=== PATIENT | female | born 1965 | race Caucasian/White ===

== ENCOUNTER 2018-02-05 08:03 | Emergency (ER) | payer OTHER, SELFPAY ==
[2018-02-05 08:03] VITALS: BP 160/98; PULSE 87; RESP 15; TEMP 35.9; O2SAT 94; BMI 38.7
--- NOTE | 2018-02-05 08:19 | ED.VISSUMM ---
- ER Visit Summary Date of Service: 02/05/18 Chief Complaint: Burning in my chest History of Present Illness: The patient is a 52 F well-established history of reflux. Denies ever having upper endoscopy. CBC was obtained patient states this is a daily occurrence. Last night failure burning was so bad she said it was even difficult swallowing. Worse with eating and laying supine. Better upright. She denies fever. She denies exertional chest pain or dyspnea. She has no known cardiac history. 5 or 6 years ago she had a negative stress test according to the patient. Physical Examination: Appearing middle-aged female. Vital signs are stable afebrile. She does not look septic or toxic. H EENT exam unremarkable. Neck nontender. Lungs clear to auscultation bilaterally. Heart regular rhythm no murmur. Abdomen is soft and nontender. Normal bowel sounds no peritoneal signs and nontender. Neurologically she is awake and alert. Test Results: EKG shows normal sinus rhythm without any signs of dysrhythmia nor ischemia. Heart rate is 72. Emergency Department Course and Treatment: Patient's history and exam are consistent with gastroesophageal reflux. She will be treated with p.o. tonics and a GI cocktail and reassess. P exam after GI cocktail and Protonix patient is already started to feel better. She and I discussed her test results. Treatment Plan: Stop her Tagamet. She will be written for prescription of Protonix. Elevate the head of her bed. Do not eat for at least 3-4 hours before bedtime. Mylicon as needed for gas. Follow-up with her primary care physician if not improving she may need upper endoscopy. Disposition: Discharge Impression: Acute gastroesophageal reflux This note was generated with [employer] dictation software. It may contain incorrect words, spelling, and punctuation that were not noted in review of the chart prior to signing ED Disposition - Plan for ED Patient: Chief Complaint: Other, Pain/Inj Referrals: Dariel Guardado MD [Primary Care Provider] -
[2018-02-05] MEDS: Mag Hydrox/Al Hydrox/Simeth 30 ML UDC PO (08:26)
[2018-02-05] MEDS: Pantoprazole Sodium 40 MG Tablet PO (08:26)
--- NOTE | 2018-02-05 08:55 | ED.DEP ---
ED Disposition - Plan for ED Patient: Disposition: Home or Assisted Living Chief Complaint: Other, Pain/Inj Instructions: ED GERD Prescriptions: Pantoprazole Sodium [Protonix] 40 mg PO DAILY #30 tab Simethicone 40MG/0.6ML [Mylicon] 40 mg PO DAILY PRN PRN #30 bottle PRN Reason: Gas Referrals: Dariel Guardado MD [Primary Care Provider] - 10-14 Days if not better Additional Instructions: Stop your Tagamet. Start the Protonix for your reflux. Elevate the head your bed. Do not eat for at least 3-4 hours before bedtime. Mylicon as needed for gas. Low up with your doctor if not improving. You may need upper endoscopy if still having significant problems.
== END 2018-02-05 09:11 | disposition home or self-care (01) ==
PROVIDERS: Emergency Provider Emergency Medicine; Family Provider Family Medicine; PCP Family Medicine
DX: K21.9 Gastro-esophageal reflux disease without esophagitis (principal)
CPT/HCPCS: 93005; 99283

== ENCOUNTER 2019-08-10 02:40 | Emergency (ER) | payer SELFPAY ==
[2019-08-10 02:40] VITALS: BP 131/82; PULSE 76; RESP 18; TEMP 36.2; O2SAT 95; BMI 35.3
--- NOTE | 2019-08-10 03:04 | RAD_ITS ---
STUDY: X-RAY - UNILATERAL RIBS ( LEFT ) WITH CHEST REASON FOR EXAM: Female, 53 years old. fell last week -- c/o lt lateral rib pain TECHNIQUE - RIBS: 3 view(s) of the ribs. TECHNIQUE - CHEST: Single frontal view of the chest. COMPARISON: October 04, 2016. FINDINGS - RIBS: Normal visualized left ribs without a demonstrated fracture. FINDINGS - CHEST: Low lung volumes. No pneumothorax. No pleural effusion. Bibasilar atelectasis/scarring. No focal consolidation. Normal size heart. Aortic calcifications. There are diffuse degenerative changes of the visualized thoracic spine. Gaseous distention of the colon within the visualized abdomen. RAD/Ribs Uni Min 3V w/PA Chest IMPRESSION: RIBS: Normal x-ray examination of the left ribs. CHEST: Low lung volumes with bilateral basilar atelectasis/scarring. There is no focal consolidation identified. Gaseous distention of the visualized colon. Dedicated KUB could be performed to further evaluate. Electronically Signed: Tu Bro, at 4:00 EST Tel , Service support ,
[2019-08-10] MEDS: Lidocaine 5% Patch 1 PATCH TOPICAL (03:24)
--- NOTE | 2019-08-10 03:53 | ED.VIS.GEN ---
History of Present Illness Chief Complaint: Chest Other Narrative: Patient presenting for evaluation secondary to rib pain. Patient reports that about a week ago she suffered a mechanical fall. She reports that she tripped on some uneven sidewalk. She struck her knee and her left chest against the ground. She denies hitting her head or loss of consciousness. Patient states that she has had continuous pain in the left chest since then, but over the last 24 hours specifically she has had an increase in that pain with paroxysms of severe pain with some shortness of breath. Patient denies any hemoptysis. She denies any hematuria. She denies any abdominal pain or distention. She is not any sort of anticoagulants. Patient denies any fevers or productive cough associated with this. No abnormal skin changes. Review of systems otherwise negative. Past Medical History - Allergies and Home Meds Allergies/Adverse Reactions: Allergies No Known Allergies Allergy (Verified 02/05/18 08:08) Primary Care Physician: Dariel Guardado MD [Primary Care Provider] - Past Medical History: None Surgical History: no surgical history Smoking Status: Never smoker Review of Systems All systems negative except as indicated General: Denies: Chills, Fever, Sweats Eyes: Denies: Visual changes - bilaterally, Diplopia ENT: Denies: Rhinorrhea, Sore throat Cardiovascular: Reports: Chest pain Respiratory: Reports: Dyspnea Gastrointestinal: Denies: Abdominal pain, Nausea, Vomiting, Diarrhea, Melena, Hematochezia Genitourinary: Denies: Dysuria, Hematuria, Frequency Musculoskeletal: Denies: Back pain, Extremity Pain Skin: Denies: Rash, Wounds Neurological: Denies: Headache, Weakness, Numbness Physical Exam Vital Signs/Narrative: Vital Signs Temp Pulse Resp BP Pulse Ox 08/10/19 02:40 97.2 F L 76 18 131/82 H 95 Inital Vital Signs reviewed: Yes General: Well nourished, Well developed, No Acute Distress Head: Normocephalic, Atraumatic Eyes: Perrl, EOMI ENT: Moist mucous membranes, No rhinorrhea Neck: Supple, Nontender Cardiovascular: Regular rate, Regular rhythm, No murmurs Respiratory: No distress, CTA bilaterally, Chest tenderness - Focal chest tenderness noted at about the T8-T10 region of the left side of the chest in the midaxillary line. No evidence of overlying skin changes, subcutaneous emphysema, flail chest. Abdomen: Soft, Nontender, Nondistended, Normal bowel sounds, - - No abdominal or flank ecchymosis is noted Back: Nontender, Normal Inspection Extremities: Nontender, No edema Skin: Normal color, No rash Neurological: Alert, Oriented x3, Cranial nerves II-XII grossly intact, Normal Strength, Normal Sensation Psychological: Normal affect, Normal Mood Diagnostic/Tx/Re-eval - Medical Decision Making Patient presented secondary to a rib injury with increasing rib pain. Physical exam showed focal tenderness to palpation. I do not believe that laboratory work-up or CT imaging are indicated. Radiographs by my personal review as well as radiology of the chest and left ribs show no evidence of fracture, but do show some dilation of the patient's bowel. I discussed this with patient, she states that she has had a significant amount of gas recently and has not been having issues with constipation and has no history of abdominal surgery so I do not feel that this is a presentation of bowel obstruction. Given the reproducibility of the patient's pain this likely is associated with a rib injury. Patient was treated with a lidocaine patch. She will be discharged with a course of the same. All questions were answered and patient was discharged. ED Disposition - Plan for ED Patient: Disposition: Home or Assisted Living Diagnosis: Rib contusion Instructions: Chest Wall Contusion Prescriptions: Lidocaine [Lidoderm] 1 ea TP DAILY #10 adh..patch Prescription Printed Referrals: Dariel Guardado MD [Primary Care Provider] - 1 Week if not improving
== END 2019-08-10 04:28 | disposition home or self-care (01) ==
PROVIDERS: Emergency Provider Emergency Medicine; PCP Family Medicine
DX: S20.219A Contusion of unspecified front wall of thorax, initial encounter (principal); W01.10XA Fall on same level from slipping, tripping and stumbling with subsequent striking against unspecified object, initial encounter; Y93.9 Activity, unspecified; Y92.480 Sidewalk as the place of occurrence of the external cause; Y99.9 Unspecified external cause status
CPT/HCPCS: 71101; 99283

== ENCOUNTER 2019-08-24 17:16 | Emergency (ER) | payer SELFPAY ==
[2019-08-24 17:17] VITALS: BP 135/92; PULSE 75; RESP 18; TEMP 36.7; O2SAT 99; BMI 36.1
--- NOTE | 2019-08-24 18:17 | EKG12_ITS ---
Test Reason : LIGHT-HEADED Blood Pressure : / mmHG Vent. Rate : 061 BPM Atrial Rate : 061 BPM P-R Int : 160 ms QRS Dur : 080 ms QT Int : 426 ms P-R-T Axes : 035 -09 026 degrees QTc Int : 428 ms Normal sinus rhythm Normal ECG Confirmed by YOLA GONZALES, ILEANA ([id number]), design editor CECILLE TAPIA ([id number]) on 08/26/2019 1:01:15 PM Referred By: RIVER Confirmed By:JUSTO ACEVES MD
[2019-08-24 18:44] LABS: Absolute Lymphocyte Count 2.31 X10^3/uL (0.83-4.51); Absolute Neutrophil Count 6.2 X10^3/uL (2.0-7.7); Basophil# 0.06 X10^3/uL; Basophil% 0.6 % (0-1); Eosinophil# 0.27 X10^3/uL; Eosinophils% 2.9 % (0-5); Hematocrit 42.2 % (37-47); Hemoglobin 14.1 g/dL (12.0-15.0); Lymphocyte # 2.31 X10^3/ul (4.0); Lymphocyte % 24.4 % (19-41); Mean Corp Hgb Conc 33.4 g/dL (32-36); Mean Corpuscular Hgb 29.3 pg (27.0-32.0); Mean Corpuscular Volume 87.6 fL (81-99); Mean Platelet Vol. 9.1 fl (6.2-12.0); Monocyte# 0.59 X10^3/uL; Monocyte% 6.2 % (0-10); NRBC Flagged by Analyzer 0 % (0-5); Neutrophil # 6.19 X10^3/uL (2.7-7.7); Neutrophil % 65.5 % (47-70); Platelet Count 370 K/mm3 (150-450); RBC Distribution Width CV 12.7 % (11.6-14.6); RBC Distribution Width SD 40.3 fl (35.1-43.9); Red Blood Count 4.82 M/mm3 (4.2-5.4); White Blood Count 9.5 K/mm3 (4.4-11.0)
[2019-08-24] MEDS: 0.9% Normal Saline 1,000 ML 1000 ML IV (18:45)
[2019-08-24 18:46] VITALS: BP 142/82; BP 144/78; BP 144/93; PULSE 63; PULSE 64; PULSE 65
--- NOTE | 2019-08-24 18:55 | RAD_ITS ---
STUDY: X-RAY CHEST REASON FOR EXAM: Female, 53 years old. Cough. Dizziness. TECHNIQUE: Frontal and lateral views of the chest COMPARISON: 08/10/2019 FINDINGS: The lungs are clear. There are no pleural effusions. There is no pneumothorax. The heart is normal in size. There are degenerative changes noted in the spine. RAD/Chest PA and Lateral IMPRESSION: No acute thoracic pathology. Electronically Signed: Medhat Barton, at 19:09 EDT Tel , Service support ,
[2019-08-24 18:58] LABS: Anion Gap 5 (5-15); BUN 11 mg/dL (7-18); BUN/Creat Ratio 14.4 RATIO (10-20); Calcium,Total 8.9 mg/dL (8.5-10.1); Chloride 109 mmol/L (98-107); Creatinine, Serum 0.76 mg/dL (0.55-1.02); EST Glomerular Filtration Rate 85 mL/min (>60); Est Glom Filt Rate - Afr Amer 102 mL/min (>60); Estimated Creatinine Clearance 75.62 ml/min; Glucose 104 mg/dL (74-106); Potassium 3.9 mmol/L (3.5-5.1); Sodium Level 142 mmol/L (136-145)
--- NOTE | 2019-08-24 19:19 | ED.VISSUMM ---
- ER Visit Summary Date of Service: 08/24/19 Chief Complaint: Lightheaded History of Present Illness: The patient is a [address] Zamora. She reports that approximately an hour and a half ago [place] she became lightheaded. She had been walking for approximately 25 minutes. She denies any chest pain, palpitations, shortness of breath, abdominal pain, nausea, vomiting, or diarrhea. Patient does report she had a cough for the past few months. Is nonproductive. She denies any vertigo. Review of systems: General: No fever, chills, cold sweats. Cardiovascular: No chest pain, palpitations. Respiratory: No cough, shortness of breath, dyspnea on exertion. Gastrointestinal: No abdominal pain, nausea, vomiting, diarrhea, melena, or hematochezia. Genitourinary: No dysuria, frequency, hematuria. Skin: No rash. Neuro: No headache, numbness, weakness. Physical Examination: Vitals: Stable. Afebrile. General: Well-nourished and well-developed. Head: Normocephalic atraumatic. Neck: Supple, no lymphadenopathy. No JVD. Nontender. Cardiovascular: Regular rate and rhythm. No murmurs. Respiratory: No respiratory distress. Clear to auscultation bilaterally. Abdominal: Soft, nontender, nondistended, normal bowel sounds. No guarding, rebound, or peritoneal signs. Back: Nontender. Extremities: Nontender, no edema. Skin: Normal color, no rash. Neurologic: Alert and oriented ?3. Cranial nerves II through XII are intact. Normal strength and sensation. Psych: Normal affect. Test Results: EKG is sinus at 61 with no acute changes. CBC is normal. Chem-7 shows a chloride 109. Clinical Impression(s) from Imaging Studies Chest X-Ray 08/24/19 18:55 IMPRESSION: No acute thoracic pathology. Electronically Signed: Medhat Barton, at 19:09 EDT Tel , Service support , Emergency Department Course and Treatment: Patient had negative orthostatic vital signs. She was given a liter of normal saline. She is walking about the emergency department with no difficulty. Treatment Plan: Patient be discharged instructions to push fluids. Follow-up with her primary care physician in 1 to 2 days if not improving. Return to the emergency department for any worsening symptoms. Disposition: To home in improved and stable condition. Impression: 1. Lightheadedness, uncertain cause. This note was generated with [employer] software. It may contain incorrect words, spelling, and punctuation that were not noted in review of the chart prior to signing ED Disposition - Plan for ED Patient: Disposition: Home or Assisted Living Instructions: NEAR SYNCOPE, Unknown Referrals: Dariel Guardado MD [Primary Care Provider] - 3-5 Days
[2019-08-24 19:27] VITALS: BP 144/78; PULSE 62; RESP 15; O2SAT 97
== END 2019-08-24 19:35 | disposition home or self-care (01) ==
LOC: ED 18:42
PROVIDERS: Emergency Provider Emergency Medicine; PCP Family Medicine
DX: R42 Dizziness and giddiness (principal); R05 Cough
CPT/HCPCS: 71046; 80048; 85025; 93005; 96360; 99285; J7030; A4216

== ENCOUNTER 2022-11-20 12:40 | Observation (INO) | payer MEDICAID, SELFPAY ==
[2022-11-20] VITALS (8 sets, daily range): BP systolic 128–145; BP diastolic 77–114; PULSE 75–94; RESP 18–20; TEMP 36.4–37.5; O2SAT 94–99; BMI 38.6
--- NOTE | 2022-11-20 13:15 | EX.ED.DYSGE1 ---
HPI <BELLA Ho - Last Filed: 11/20/22 15:08> History of Present Illness Chief Complaint: Cellulitis Narrative Narrative: Is a 57-year-old female with no significant medical history does not take any medications daily does not see a physician. Patient presents to the emergency department for 2 months of worsening pain to the right lower extremity, concerning for infection. 2 months ago she noticed some itching to her right lower leg, over the last couple weeks, is getting more red, more swollen she is also noticed more seepage from the leg. Patient states that the pain is unbearable at this time, she is unable to bear weight, she is unable to sleep. She denies any fevers or chills however does have body aches. She denies any nausea or vomiting. She has not been on any antibiotics recently. PFSH <BELLA Ho - Last Filed: 11/20/22 15:08> [facility] Medical History no medical history Home Medications NK 08/24/19 [History Last Taken Unknown] Allergy/AdvReac Type Severity Reaction Status Date / Time No Known Allergies Allergy Verified 08/24/19 17:19 Surgical History no surgical history Social History Smoking Status: Never smoker ROS <BELLA Ho - Last Filed: 11/20/22 15:08> ROS ED ROS Narrative Constitutional: Negative for fever, chills, weight loss, weakness Eyes: Negative for vision loss, vision change, double vision ENT: Negative for any sore throat, ear pain, congestion Cardiovascular: Negative for any chest pain, tightness, palpitations Respiratory: Negative for any cough, sputum production, hemoptysis, dyspnea, dyspnea on exertion, orthopnea Gastrointestinal: Negative for any abdominal pain, nausea, vomiting, diarrhea, constipation, blood in stool, blood in vomit : Negative for any urinary frequency, dysuria, retention, blood in urine Muscle skeletal: Negative for any muscle joint pain, stiffness, myalgias, arthralgias, neck pain, back pain. Positive for right lower leg pain. Neurological: Negative for any headache, syncope, numbness or tingling, dizziness Skin: Negative for any rashes, lumps, lacerations. Positive for itching, skin breakdown, redness to the right lower leg Psychiatric: Negative for any depression, anxiety, stress, suicidal ideation, homicidal ideation Hematologic: Negative for any easy bruising, excessive bruising, easy bleeding Allergies: Negative for any eczema, hives, rash EXAM <BELLA Ho - Last Filed: 11/20/22 15:08> Physical Exam Narrative Exam Narrative: Vital signs reviewed. HEET: Head normocephalic atraumatic, TMs clear bilaterally. Posterior pharynx is clear, moist mucous membranes. Nares clear bilaterally. Neck: Supple with no lymphadenopathy or tenderness. No signs of meningismus, negative jolt sign. Cardiac: Regular rate and rhythm no murmurs gallops or rubs, equal peripheral pulses bilaterally. Respiratory: Lungs clear to auscultation bilaterally. No chest tenderness. Abdomen: Soft, nontender, nondistended. No abdominal bruit or pulsatile masses. No hepatosplenomegaly Extremities: Patient has erythema, edema to the right lower leg below the knee. There is skin breakdown, significant cellulitis to the medial aspect of the right inner leg that is circumferential. There is skin breakdown with drainage, warm to the touch.. Active full range of motion of all extremities. No neurological focal deficit. Neuro: Cranial nerves II through XII intact, no focal neurological deficits. Skin: Clean dry and intact with no rash, purpura, petechiae, vesicles or pustules. Backs/flank: No CVA tenderness, no midline spinal tenderness, no deformity. Psych: Normal mood and affect. No SI, HI or acute psychosis. Const Vital Signs: 11/20/22 12:40 11/20/22 14:37 Temperature 97.5 F L 98.3 F Temperature Source Temporal Oral Pulse Rate 94 81 Respiratory Rate 18 18 Blood Pressure 134/114 H 128/86 H Blood Pressure Mean 120 100 Pulse Ox 98 95 Oxygen Delivery Method Room Air Room Air Positive well nourished and well developed General Appearance ED: well developed <Dr. Stacy Nava DO - Last Filed: 11/20/22 14:59> Physical Exam Const Vital Signs: 11/20/22 12:40 11/20/22 14:37 Temperature 97.5 F L 98.3 F Temperature Source Temporal Oral Pulse Rate 94 81 Respiratory Rate 18 18 Blood Pressure 134/114 H 128/86 H Blood Pressure Mean 120 100 Pulse Ox 98 95 Oxygen Delivery Method Room Air Room Air MDM <BELLA Ho - Last Filed: 11/20/22 15:08> MDM Lab Data Labs: Laboratory Results - last 24 hr 11/20/22 11/20/22 11/20/22 13:25 13:25 13:25 WBC 9.4 RBC 4.52 Hgb 12.6 Hct 39.4 MCV 87.2 MCH 27.9 MCHC 32.0 RDW Std Deviation 40.2 RDW Coeff of Ariel 12.6 Plt Count 477 H MPV 9.1 Immature Gran % (Auto) 0.400 Neut % (Auto) 74.1 H Lymph % (Auto) 14.1 L Pecos % (Auto) 7.4 Eos % (Auto) 3.3 Baso % (Auto) 0.7 Absolute Neuts (auto) 7.0 Absolute Lymphs (auto) 1.33 Nucleated RBC % 0 PT 13.7 INR 1.0 APTT 26.1 Sodium 140 Potassium 3.8 Chloride 108 H Carbon Dioxide 25.0 Anion Gap 7 BUN 11 Creatinine 0.85 Estim Creat Clear Calc 64.58 Est GFR (MDRD) Af Amer 89 Est GFR (MDRD) Non-Af 74 BUN/Creatinine Ratio 12.9 Glucose 157 H Lactic Acid Calcium 9.1 Total Bilirubin 0.60 AST 17 ALT 21 Alkaline Phosphatase 108 Total Protein 7.3 Albumin 2.9 L Globulin 4.4 H Albumin/Globulin Ratio 0.7 L 11/20/22 13:25 WBC RBC Hgb Hct MCV MCH MCHC RDW Std Deviation RDW Coeff of Ariel Plt Count MPV Immature Gran % (Auto) Neut % (Auto) Lymph % (Auto) Pecos % (Auto) Eos % (Auto) Baso % (Auto) Absolute Neuts (auto) Absolute Lymphs (auto) Nucleated RBC % PT INR APTT Sodium Potassium Chloride Carbon Dioxide Anion Gap BUN Creatinine Estim Creat Clear Calc Est GFR (MDRD) Af Amer Est GFR (MDRD) Non-Af BUN/Creatinine Ratio Glucose Lactic Acid 2.3 H* Calcium Total Bilirubin AST ALT Alkaline Phosphatase Total Protein Albumin Globulin Albumin/Globulin Ratio Treatment and Re-Evaluation :: Patient appears to be in mild discomfort secondary to the right leg pain. Patient presents to the emergency department for a wound to the right leg that is getting worse. Upon initial evaluation, this does look like significant cellulitis to the right lower extremity. Differential diagnoses include PAD, DVT however these are low on my differential. I believe the patient suffering from significant cellulitis. Sepsis work-up will be completed with 2 sets of blood cultures, patient be started on Unasyn, vancomycin. The patient's plan will be to admit to the hospital. Patient laboratory values show normal CBC, chemistries show slight elevated blood glucose at 157 with a increased lactic acid at 2.3. Patient was started on IV Unasyn, vancomycin. Secondary to the extension of the cellulitis, skin breakdown, patient will be admitted to the hospital, hospitalist agrees and is stable. <Dr. Stacy Nava, DO - Last Filed: 11/20/22 14:59> [facility] MDM Narrative Medical decision making narrative: I have personally performed a face to face assessment of the patient and have reviewed the GRACIELA Note. I performed a substantive portion of the visit including all aspects of the following. My pena findings include: History is [patient presents with redness swelling and pain to the right lower extremity. Patient states that she developed a rash and some itching to her right lower extremity about 2 months ago and she has been itching it and picking at it. Progressively became more painful and red and swollen. She had no fever or chills or sweats. She is not sure if she has any medical problems that she does not see a primary care physician. Patient denies any chest pain or shortness of breath.] Exam is [HEENT-PERRLA, EOMI. Cranial nerves II through XII grossly intact. TMs clear. Mucous membranes moist. No adenopathy. Cardiovascular-regular rate and rhythm without murmur or ectopy Lungs-clear to auscultation, chest wall stable without crepitus or subcu emphysema Abdomen-normoactive bowel sounds, soft, nontender, no rebound or rigidity, no peritoneal signs. Extremities-intact ?4, normal range of motion, normal pulses. Right lower extremity-patient has diffuse erythema and excoriated skin that appears cellulitic with weeping. Neurovascularly intact distally.] Medical Decison Making [patient will be started on Unasyn and vancomycin IV. Wound culture will be obtained. We will get basic lab work-up.] Patient had a normal WBC count of 9.4. Lactate was slightly 2.3. Patient was treated with Unasyn and vancomycin. Case discussed with hospitalist to evaluate patient for admission for cellulitis right lower extremity. Other additions or changes: [None] Lab Data Labs: Laboratory Results - last 24 hr 11/20/22 11/20/22 11/20/22 13:25 13:25 13:25 WBC 9.4 RBC 4.52 Hgb 12.6 Hct 39.4 MCV 87.2 MCH 27.9 MCHC 32.0 RDW Std Deviation 40.2 RDW Coeff of Ariel 12.6 Plt Count 477 H MPV 9.1 Immature Gran % (Auto) 0.400 Neut % (Auto) 74.1 H Lymph % (Auto) 14.1 L Pecos % (Auto) 7.4 Eos % (Auto) 3.3 Baso % (Auto) 0.7 Absolute Neuts (auto) 7.0 Absolute Lymphs (auto) 1.33 Nucleated RBC % 0 PT 13.7 INR 1.0 APTT 26.1 Sodium 140 Potassium 3.8 Chloride 108 H Carbon Dioxide 25.0 Anion Gap 7 BUN 11 Creatinine 0.85 Estim Creat Clear Calc 64.58 Est GFR (MDRD) Af Amer 89 Est GFR (MDRD) Non-Af 74 BUN/Creatinine Ratio 12.9 Glucose 157 H Lactic Acid Calcium 9.1 Total Bilirubin 0.60 AST 17 ALT 21 Alkaline Phosphatase 108 Total Protein 7.3 Albumin 2.9 L Globulin 4.4 H Albumin/Globulin Ratio 0.7 L 11/20/22 13:25 WBC RBC Hgb Hct MCV MCH MCHC RDW Std Deviation RDW Coeff of Ariel Plt Count MPV Immature Gran % (Auto) Neut % (Auto) Lymph % (Auto) [place]os % (Auto) Eos % (Auto) Baso % (Auto) Absolute Neuts (auto) Absolute Lymphs (auto) Nucleated RBC % PT INR APTT Sodium Potassium Chloride Carbon Dioxide Anion Gap BUN Creatinine Estim Creat Clear Calc Est GFR (MDRD) Af Amer Est GFR (MDRD) Non-Af BUN/Creatinine Ratio Glucose Lactic Acid 2.3 H* Calcium Total Bilirubin AST ALT Alkaline Phosphatase Total Protein Albumin Globulin Albumin/Globulin Ratio Discharge Plan Triage Chief Complaint: Cellulitis ED Midlevel Provider: Eric Mejias ED Provider: Stacy Nava Dx/Rx/DC Orders Clinical Impression: Cellulitis Prescriptions: No Action NK Primary Care Provider: Care Physician,No Primary Referrals: Care Physician,No Primary [Primary Care Provider] - Disposition Disposition: [facility]
[2022-11-20 13:47] LABS: Absolute Lymphocyte Count 1.33 X10^3/uL (0.83-4.51); Basophil# 0.07 X10^3/uL; Basophil% 0.7 % (0-1); Eosinophil# 0.31 X10^3/uL; Eosinophils% 3.3 % (0-5); Hematocrit 39.4 % (37-47); Hemoglobin 12.6 g/dL (12.0-15.0); Lymphocyte # 1.33 X10^3/ul (0.83-4.51); Lymphocyte % 14.1 % (19-41); Mean Corpuscular Hgb 27.9 pg (27.0-32.0); Mean Corpuscular Volume 87.2 fL (81-99); Mean Platelet Vol. 9.1 fl (6.2-12.0); Monocyte% 7.4 % (0-10); NRBC Flagged by Analyzer 0 % (0-5); Neutrophil # 6.96 X10^3/uL (2.7-7.7); Neutrophil % 74.1 % (47-70); Platelet Count 477 K/mm3 (150-450); RBC Distribution Width CV 12.6 % (11.6-14.6); RBC Distribution Width SD 40.2 fl (35.1-43.9); Red Blood Count 4.52 M/mm3 (4.2-5.4); White Blood Count 9.4 K/mm3 (4.4-11.0)
[2022-11-20 13:52] LABS: Partial Thromboplast Time 26.1 Seconds (24.1-36.2); Prothrombin Time (Protime)PT. 13.7 SECONDS (11.7-14.9)
[2022-11-20] MEDS: Morphine 4 MG/ML Syringe IV (13:54)
[2022-11-20] MEDS: 0.9% Normal Saline 1,000 ML 999 ML IV ×3 (13:54→18:34)
[2022-11-20] MEDS: Ondansetron 4 MG/2 ML Vial IV (13:54)
[2022-11-20 14:05] LABS: ALB/GLOB Ratio 0.7 RATIO (0.9-2.4); AST(SGOT) 17 U/L (15-37); Alanine Aminotransfer ALT/SGPT 21 U/L (13-56); Albumin, Serum 2.9 g/dL (3.2-5.0); Alkaline Phosphatase 108 U/L (45-117); Anion Gap 7 (5-15); BUN 11 mg/dL (7-18); BUN/Creat Ratio 12.9 RATIO (10-20); Calcium,Total 9.1 mg/dL (8.5-10.1); Chloride 108 mmol/L (98-107); Creatinine, Serum 0.85 mg/dL (0.55-1.02); EST Glomerular Filtration Rate 74 mL/min (>60); Est Glom Filt Rate - Afr Amer 89 mL/min (>60); Estimated Creatinine Clearance 64.58 ml/min; Globulin 4.4 g/dL (2.2-4.2); Glucose 157 mg/dL (74-106); Potassium 3.8 mmol/L (3.5-5.1); Protein, Total 7.3 g/dL (6.4-8.2); Sodium Level 140 mmol/L (136-145)
[2022-11-20 14:21] LABS: Lactic Acid 2.3 mmol/L (0.4-1.9)
--- NOTE | 2022-11-20 15:07 | ED.RN ---
pharmacy was notified that vancomycin not in department
--- NOTE | 2022-11-20 15:31 | CT_ITS ---
CT RIGHT LOWER EXTREMITY WITH 3-D IMAGING CLINICAL INDICATION: cellulitis -- suspected nec fasitis. R/O abscess TECHNIQUE: Axial CT images of the RIGHT lower extremity was performed Contrast IV 100mL Isovue-300 IV contrast material. Coronal and sagittal reformats were provided. RADIATION DOSAGE (If Supplied By Facility): CTDIvol = ( 15.35 ) mGy, DLP = ( 825.81 ) mGycm COMPARISON: FINDINGS: Bones: There is mild degenerative arthrosis of the medial femorotibial compartment. There is mild degenerative arthrosis of the lateral femorotibial compartment. There is mild degenerative arthrosis of the patellofemoral articulation. There is a plantar calcaneal spur. There is an enthesophyte involving the posterior superior calcaneus at the site of insertion of the Achilles tendon. Degenerative findings of the visualized tarsal bones. Soft Tissues: There is soft tissue swelling around the ankle. Varicose veins throughout the lower extremity. Subcutaneous edema changes. CT/Extremity Lower WITH Contrast IMPRESSION: Soft tissue swelling around the lower extremity may suggest cellulitis. No drainable abscess. Electronically Signed: Reji Coulter MD at 16:11 EDT ,
--- NOTE | 2022-11-20 16:34 | PCM.HP.STD ---
HPI - General General Date of Admission: 11/20/22 Date of Service: 11/20/22 Chief Complaint: Progressive worsening of right lower extremity redness pain for about 2 to 3 weeks HPI Narrative CHAD GONZALEZ, is a 57 F who does not follow any PCP came to ED for right lower extremity cellulitis prominently worsening for about 2 to 3 weeks. It started with itching about a month ago and right lower leg and then couple weeks ago she saw a redness pain, oozing purulent drainage. She also had blisters. Complain of pain and low-grade fever. Patient does not know about her past medical history as she does not follow any doctor. She does not know whether she has diabetes mellitus but glucose was elevated in ED. Vitals in the ED shows low-grade fever, blood pressure in normal range no tachycardia or hypoxia. Labs and imaging discussed in assessment and plan. She denies history of chronic atherosclerotic peripheral artery disease but seems she has varicose vein which she is unaware. Denies coronary artery disease or stroke. Family history is negative for [place] coronary artery disease or PAD. FORMERLY [facility], 1928–1983 Medical History no medical history Home Medications NK 08/24/19 [History Last Taken Unknown] Allergy/AdvReac Type Severity Reaction Status Date / Time No Known Allergies Allergy Verified 08/24/19 17:19 Surgical History no surgical history Social History Smoking Status: Never smoker ROS ROS Narrative Constitutional: Reports fatigue and weakness. Pain from her right lower extremity HEENT: Reports systems reviewed and no addt'l complaints, except as documented Respiratory/Chest: No acute shortness of breath or respiratory distress or wheezing. CVS: As described in HPI. Gastrointestinal: Denies coffee ground emesis, hematemesis or vomiting Genitourinary: Denies burning urination or new urinary tract symptoms Musculoskeletal: Does not give any trauma history to right lower extremity. No fracture or bony injury in the past of right lower extremity Neurologic: Denies seizure-like symptoms. skin: Blisters redness pain ongoing for about 2 to 3 weeks as described in HPI Endocrinology: Reports systems reviewed and no addt'l complaints, except as documented Hematologic/Lymphatic: Reports systems reviewed and no addt'l complaints, except as documented Rest 14 ROS are negative except as mentioned in HPI Vital Signs Vital Signs Vital Signs: 11/20/22 12:40 11/20/22 14:37 11/20/22 16:00 Temperature 97.5 F L 98.3 F 99.5 F H Temperature Source Temporal Oral Temporal Pulse Rate 94 81 76 Respiratory Rate 18 18 18 Blood Pressure 134/114 H 128/86 H 133/78 H Blood Pressure Mean 120 100 96 Pulse Ox 98 95 97 Oxygen Delivery Method Room Air Room Air Room Air 11/20/22 16:21 11/20/22 16:26 Temperature 98.2 F 99.5 F H Temperature Source Temporal Temporal Pulse Rate 88 82 Respiratory Rate 20 H 20 H Blood Pressure 138/77 H 133/91 H Blood Pressure Mean 97 105 Pulse Ox 94 95 Oxygen Delivery Method Room Air Room Air Weight Weight: 225 lb 1.6 oz Body Mass Index (BMI) 38.6 Physical Exam Narrative General: Alert, Oriented x3, Cooperative HEENT: Atraumatic, PERRLA, EOMI, Normocephalic Oral: Oral mucosa dry. No Gingival or Mucosal Lesions/ Ulcerations Neck: Supple, No JVD, Negative Carotid Bruits Lungs: Air entry diminished in bilateral lung bases. No crepitation/rhonchi Cardiovascular: Regular rate, Regular Rhythm, Normal S1, Normal S2, No murmurs Abdomen: Bowel Sounds Present, Soft, Non Tender, Non-Distended : No renal angle tenderness. No suprapubic tenderness. Extremities: No edema, Capillary Refill Less than 3 Seconds Skin: Erythema, induration, exhibits tenderness out of proportion to pain over right lower extremity. Cellulitis below right knee joint. Musculoskeletal: ROM restricted at knee and ankle. 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 No pain or acute abnormality in other extremities. Neurological: Cranial nerves II-XII grossly intact, DTR 2+/4 and Symmetrical, Neuro grossly intact Psych/Mental Status: Flat affect. Results Lab / Micro Data Result Diagrams: 11/20/22 13:25 11/20/22 13:25 Labs: Laboratory Results - last 24 hr 11/20/22 13:25: WBC 9.4, RBC 4.52, Hgb 12.6, Hct 39.4, MCV 87.2, MCH 27.9, MCHC 32.0, RDW Std Deviation 40.2, RDW Coeff of Ariel 12.6, Plt Count 477 H, MPV 9.1, Immature Gran % (Auto) 0.400, Neut % (Auto) 74.1 H, Lymph % (Auto) 14.1 L, [place] % (Auto) 7.4, Eos % (Auto) 3.3, Baso % (Auto) 0.7, Absolute Neuts (auto) 7.0, Absolute Lymphs (auto) 1.33, Nucleated RBC % 0 11/20/22 13:25: PT 13.7, INR 1.0, APTT 26.1 11/20/22 13:25: Sodium 140, Potassium 3.8, Chloride 108 H, Carbon Dioxide 25.0, Anion Gap 7, BUN 11, Creatinine 0.85, Estim Creat Clear Calc 64.58, Est GFR (MDRD) Af Amer 89, Est GFR (MDRD) Non-Af 74, BUN/Creatinine Ratio 12.9, Glucose 157 H, Calcium 9.1, Total Bilirubin 0.60, AST 17, ALT 21, Alkaline Phosphatase 108, Total Protein 7.3, Albumin 2.9 L, Globulin 4.4 H, Albumin/Globulin Ratio 0.7 L 11/20/22 13:25: Lactic Acid 2.3 H* Radiology Impression Lower Extremity CT 11/20/22 15:31 IMPRESSION: Soft tissue swelling around the lower extremity may suggest cellulitis. No drainable abscess. Electronically Signed: Reji Coulter MD at 16:11 EDT Reading Location ID and State: [facility] / [place] , Service support , Assessment & Plan Assessment/Plan (1) Sepsis: PLAN: Plan This 57-year-old female is being admitted for sepsis due to cellulitis. 1. Sepsis due to right lower extremity cellulitis with varicose vein: Patient has purulent drainage with blisters ongoing for about [address] right lower extremity with contrast was done which shows subcutaneous edema but no drainable abscess. Patient is started on IV vancomycin and Zosyn. ID consulted. The patient presented with sepsis with clinical indicators of low-grade fever due to more severe right lower extremity cellulitis probably involving deep fascia, deep tissue infection with acute sepsis-related organ dysfunction as evidenced by lactic acidosis. Sepsis labs were done. KHANG and venous duplex ordered. 2. Probably undiagnosed diabetes mellitus type 2: Glucose is high 157. A1c tomorrow AM. Accu-Chek insulin is covered with Humalog sliding scale. Renal ADA diet. 3. Morbid obesity: BMI 38.6 kg/m?. Weight loss counseling done. VTE prophylaxis, high risk: Lovenox 40 mg subcu daily. Living will/advanced directive/end of life care: Patient does not have living will or advanced directive. After discussion of benefits/risks procedures involved with full code, DNR CC arrest and DNR CC, the patient opted for full code. Patient does want artificial life support including intubation, tube feed, ventilator and/chest compression, central venous catheter, vasopressor and DC shock if needed Total time spent in [id number] encounter in discussion of advanced directive 17 minutes. Laboratory Results 11/20/22 13:25: WBC 9.4, RBC 4.52, Hgb 12.6, Hct 39.4, MCV 87.2, MCH 27.9, MCHC 32.0, RDW Std Deviation 40.2, RDW Coeff of Ariel 12.6, Plt Count 477 H, MPV 9.1, Immature Gran % (Auto) 0.400, Neut % (Auto) 74.1 H, Lymph % (Auto) 14.1 L, [place] % (Auto) 7.4, Eos % (Auto) 3.3, Baso % (Auto) 0.7, Absolute Neuts (auto) 7.0, Absolute Lymphs (auto) 1.33, Nucleated RBC % 0 11/20/22 13:25: PT 13.7, INR 1.0, APTT 26.1 11/20/22 13:25: Sodium 140, Potassium 3.8, Chloride 108 H, Carbon Dioxide 25.0, Anion Gap 7, BUN 11, Creatinine 0.85, Estim Creat Clear Calc 64.58, Est GFR (MDRD) Af Amer 89, Est GFR (MDRD) Non-Af 74, BUN/Creatinine Ratio 12.9, Glucose 157 H, Calcium 9.1, Total Bilirubin 0.60, AST 17, ALT 21, Alkaline Phosphatase 108, Total Protein 7.3, Albumin 2.9 L, Globulin 4.4 H, Albumin/Globulin Ratio 0.7 L 11/20/22 13:25: Lactic Acid 2.3 H* Clinical Impression(s) from Imaging Studies Lower Extremity CT 11/20/22 15:31 IMPRESSION: Soft tissue swelling around the lower extremity may suggest cellulitis. No drainable abscess. Charges/Coding Visit Charges Inpatient E&M: 01694 Init Hosp L3 Procedures Hospitalists Procedures: 80631 Advncd Care Plan 30 Min
--- NOTE | 2022-11-20 17:13 | VDLE_ITS ---
Reason For Study: Bi lateral Leg Swelling RIGHT LEFT GSV is normal. GSV is normal. CFV is compressible, spontaneous, phasic, CFV is compressible, spontaneous, phasic, competent and demonstrates normal competent, and demonstrates normal augmentation. augmentation. FV is compressible, spontaneous, phasic, FV is compressible, spontaneous, phasic, competent and demonstrates normal competent and demonstrates normal augmentation. augmentation. POP V is compressible, spontaneous, phasic, POP V is compressible, spontaneous, phasic, competent and demonstrates normal competent and demonstrates normal augmentation. augmentation. T/P Trunk is compressible. T/P Trunk is compressible. PTV is compressible. PTV is compressible. RT PerV is compressible. LT PerV is compressible. Unable to visualize mid and distal rt calf vessels due to open wounds. Procedure This is a venous duplex using B-mode, color flow and spectral Doppler. Exam performed portable in patient room. The exam was diagnostic. A preliminary report was called and/or faxed to M/S 3 RN responsible for patient. VL/Venous Duplex US - German Extrem Interpretation Summary No evidence for acute deep venous thrombosis bilateral lower extremities with p atent and compressible bilateral great saphenous veins. Technical limitation unable to vi sualize right mid and distal calf vessels due to open wounds. Ordering Physician: Sandeep Alanis Performed By: Geoffrey Brewster RVT
--- NOTE | 2022-11-20 17:13 | ART_ITS ---
Reason For Study: Right DPA and TEEN COUNSELOR diminished Procedure A bilateral lower extremity continuous wave Doppler with analog waveform analysis and ankle brachial indexes. Left Segmental Pressures Left brachial= 151mmHg. Left posterior tibial artery = 198mmHg. Left dorsalis pedis artery = 180mmHg. Left digit = 108 mmHg. The left dorsalis pedis waveforms are triphasic. The left posterior tibial artery waveforms are triphasic. Right Segmental Pressures Right posterior tibial artery = 184mmHg. Right dorsalis pedis artery = 185mmHg. Right digit = 95 mmHg. The right dorsalis pedis waveforms are triphasic. The right posterior tibial artery waveforms are triphasic. Indices The right ankle brachial index by the dorsalis pedis is 1.23. The right ankle brachial index by the posterior tibial artery is 1.22. The right digital-brachial index is 0.63. The left ankle brachial index by the dorsalis pedis is 1.19. The left ankle brachial index by the posterior tibial artery is 1.31. The left digital-brachial index is 0.72. VL/Ankle Brachial Index Interpretation Summary Normal right dorsalis pedis and posterior tibialis ankle-brachial indices at re st 1.23 and 1.22 respectively with normal triphasic Doppler waveforms. The right digital brachial index is abnormal at 0.63 suggesting distal small ve ssel disease Normal left lower extremity dorsalis pedis and posterior tibialis ankle-brachia l indices at rest at 1.19 and 1.31 respectively with normal triphasic Doppler waveforms. The left lower extremity digital brachial index is borderline abnormal at 0.72 suggesting distal small vessel disease Ordering Physician: Sandeep Alanis Performed By: Geoffrey Brewster RVT
[2022-11-20 17:32] LABS: CPK Total, Creatine Kinase 59 U/L (26-192); Magnesium 2.2 mg/dL (1.6-2.6); Phosphorus 2.8 mg/dL (2.5-4.9)
[2022-11-20] MEDS: Enoxaparin 40 MG/0.4 ML Syringe SC (17:35)
[2022-11-20 17:37] LABS: Reflex Lactate? Y
--- NOTE | 2022-11-20 17:54 | PCM.RX.CS ---
Consult Pharmacy has been consulted to manage selected antiobiotic: Vancomycin Type of Consult: New start Suspected Infection: Skin/Soft tissue Prior Doses of Antibiotics Received/Current Regimen: 11/20/22 @ 1521 Labs: Sodium 140 mmol/L (136-145) 11/20/22 13:25 Potassium 3.8 mmol/L (3.5-5.1) 11/20/22 13:25 Chloride 108 mmol/L (98-107) H 11/20/22 13:25 Carbon Dioxide 25.0 mmol/L (21.0-32.0) 11/20/22 13:25 Anion Gap 7 (5-15) 11/20/22 13:25 BUN 11 mg/dL (7-18) 11/20/22 13:25 Creatinine 0.85 mg/dL (0.55-1.02) 11/20/22 13:25 Est GFR (MDRD) Af Amer 89 mL/min (>60) 11/20/22 13:25 Est GFR (MDRD) Non-Af 74 mL/min (>60) 11/20/22 13:25 BUN/Creatinine Ratio 12.9 RATIO (10-20) 11/20/22 13:25 Glucose 157 mg/dL (74-106) H 11/20/22 13:25 Weight used for dosin kg Estimated Creatinine Clearance: 64 Pharmacy Plan for Drug Dosing: StrtVancomycin 1250mg every 12 hours. First dose to be given at 0330 on 11/21/22 Pharmacy Service will continue to monitor and adjust dosing as required. Follow-Up Labs: Trough Vancomycin Labs to be done on [date and time ordered]: 11/22/22 @ 0300
[2022-11-20 19:21] LABS: Lactic Acid 2.1 mmol/L (0.4-1.9)
[2022-11-20] MEDS: Senna/Docusate Sodium 1 Tablet 2 TABLET PO (21:51)
[2022-11-21] VITALS (10 sets, daily range): BP systolic 143–156; BP diastolic 85–96; PULSE 72–79; RESP 16–20; TEMP 36.5–36.9; O2SAT 95–98; BMI 38.2
[2022-11-21 06:40] LABS: Absolute Lymphocyte Count 1.73 X10^3/uL (0.83-4.51); Absolute Neutrophil Count 4.5 X10^3/uL (2.0-7.7); Basophil# 0.07 X10^3/uL; Basophil% 0.9 % (0-1); Eosinophil# 0.46 X10^3/uL; Eosinophils% 6.2 % (0-5); Hematocrit 37.2 % (37-47); Hemoglobin 11.6 g/dL (12.0-15.0); Lymphocyte # 1.73 X10^3/ul (0.83-4.51); Lymphocyte % 23.4 % (19-41); Mean Corp Hgb Conc 31.2 g/dL (32-36); Mean Corpuscular Hgb 28.3 pg (27.0-32.0); Mean Corpuscular Volume 90.7 fL (81-99); Mean Platelet Vol. 8.9 fl (6.2-12.0); Monocyte# 0.61 X10^3/uL; Monocyte% 8.2 % (0-10); NRBC Flagged by Analyzer 0 % (0-5); Neutrophil % 60.9 % (47-70); Platelet Count 397 K/mm3 (150-450); RBC Distribution Width CV 12.7 % (11.6-14.6); RBC Distribution Width SD 42.1 fl (35.1-43.9); White Blood Count 7.4 K/mm3 (4.4-11.0)
[2022-11-21 07:10] LABS: Anion Gap 2 (5-15); BUN 7 mg/dL (7-18); BUN/Creat Ratio 10.1 RATIO (10-20); Calcium,Total 8.3 mg/dL (8.5-10.1); Chloride 113 mmol/L (98-107); Creatinine, Serum 0.69 mg/dL (0.55-1.02); EST Glomerular Filtration Rate 94 mL/min (>60); Est Glom Filt Rate - Afr Amer 113 mL/min (>60); Estimated Creatinine Clearance 79.55 ml/min; Glucose 116 mg/dL (74-106); Potassium 4.2 mmol/L (3.5-5.1); Sodium Level 141 mmol/L (136-145)
--- NOTE | 2022-11-21 07:46 | PCM.RX.CS ---
Consult Type of Consult: Follow-up Suspected Infection: Skin/Soft tissue Labs: Sodium 141 mmol/L (136-145) 11/21/22 06:27 Potassium 4.2 mmol/L (3.5-5.1) 11/21/22 06:27 Chloride 113 mmol/L (98-107) H 11/21/22 06:27 Carbon Dioxide 26.0 mmol/L (21.0-32.0) 11/21/22 06:27 Anion Gap 2 (5-15) L 11/21/22 06:27 BUN 7 mg/dL (7-18) 11/21/22 06:27 Creatinine 0.69 mg/dL (0.55-1.02) 11/21/22 06:27 Est GFR (MDRD) Af Amer 113 mL/min (>60) 11/21/22 06:27 Est GFR (MDRD) Non-Af 94 mL/min (>60) 11/21/22 06:27 BUN/Creatinine Ratio 10.1 RATIO (10-20) 11/21/22 06:27 Glucose 116 mg/dL (74-106) H 11/21/22 06:27 Goal Trough: 15-20 mcg/mL Pharmacy Plan for Drug Dosing: DAILY ASSESSMENT Current Vancomycin Dose: 1250mg Q12H Number of Doses Received: 1250mg x1, 2000mg x1 Current Renal Function: sCr 0.69 (CrCl 106.7 ml/min using AdjBW 73.4 kg) Renal Function Trend: stable-improved Lab/Micro: pending Any Change in Vanc Plan: Yes - adjust Vancomycin dosing regimen to 1000mg Q8H Pending Level: Vancomycin trough @ 0 11/22/22 Pharmacy Service will continue to monitor and adjust dosing as required. Labs to be done on [date and time ordered]: Vancomycin trough @ [address]/22/22
--- NOTE | 2022-11-21 08:41 | PN.HOSP_ITS ---
Reason for Visit Reason for Visit: Diagnoses Sepsis, unspecified organism (11/20/22) Subjective Subjective Patient wakes easily, reports uneventful night. Tolerable discomfort, 2/10, from right lower extremity while resting, pain increases to 6-8/10 when up to restroom; states I can walk on it, it just really hurts. Absorbent pad under right leg, noted moderate amount purulent drainage on pad and on linen surrounding wound; skin marker used to outline erythema border of wound. Patient stated that wound started with just an itchy blister. Patient denies having pets or knowing if she had been bitten by an insect. She reports living at [address] [place] [address]; evicted from previous residence because she refused to pay rent for a moldy apartment that was falling apart. Patient denies mental and physical disabilities. Objective Data Objective Data Vital Signs: Vital Signs Temp Pulse Resp BP Pulse Ox O2 Del Method 97.7 F L 73 18 153/85 H 96 Room Air 11/21/22 03:38 11/21/22 03:38 11/21/22 03:38 11/21/22 03:38 11/21/22 07:26 11/21/22 07:26 Oxygen Delivery Method Room Air Weight: 101.5 kg Body Mass Index (BMI) 38.2 Intake & Output: Intake and Output for Last 24 Hours 11/19/22 11/20/22 11/21/22 23:59 23:59 23:59 Intake Total 3634.35 / 3984.35 875 / 875 Output Total 1300 / 1300 Balance 3634.35 / 3409.35 -425 / -425 Lab / Micro Data Result Diagrams: 11/21/22 06:27 11/21/22 06:27 Labs: Laboratory Results - last 24 hr 11/20/22 13:25: WBC 9.4, RBC 4.52, Hgb 12.6, Hct 39.4, MCV 87.2, MCH 27.9, MCHC 32.0, RDW Std Deviation 40.2, RDW Coeff of Ariel 12.6, Plt Count 477 H, MPV 9.1, Immature Gran % (Auto) 0.400, Neut % (Auto) 74.1 H, Lymph % (Auto) 14.1 L, [place] % (Auto) 7.4, Eos % (Auto) 3.3, Baso % (Auto) 0.7, Absolute Neuts (auto) 7.0, Absolute Lymphs (auto) 1.33, Nucleated RBC % 0 11/20/22 13:25: PT 13.7, INR 1.0, APTT 26.1 11/20/22 13:25: Sodium 140, Potassium 3.8, Chloride 108 H, Carbon Dioxide 25.0, Anion Gap 7, BUN 11, Creatinine 0.85, Estim Creat Clear Calc 64.58, Est GFR (MDRD) Af Amer 89, Est GFR (MDRD) Non-Af 74, BUN/Creatinine Ratio 12.9, Glucose 157 H, Calcium 9.1, Total Bilirubin 0.60, AST 17, ALT 21, Alkaline Phosphatase 108, Total Protein 7.3, Albumin 2.9 L, Globulin 4.4 H, Albumin/Globulin Ratio 0.7 L 11/20/22 13:25: Lactic Acid 2.3 H* 11/20/22 13:25: Phosphorus 2.8, Magnesium 2.2, Total Creatine Kinase 59 11/20/22 18:35: Lactic Acid 2.1 H* 11/21/22 06:27: Sodium 141, Potassium 4.2, Chloride 113 H, Carbon Dioxide 26.0, Anion Gap 2 L, BUN 7, Creatinine 0.69, Estim Creat Clear Calc 79.55, Est GFR (MDRD) Af Amer 113, Est GFR (MDRD) Non-Af 94, BUN/Creatinine Ratio 10.1, Glucose 116 H, Calcium 8.3 L 11/21/22 06:27: WBC 7.4, RBC 4.10 L, Hgb 11.6 L, Hct 37.2, MCV 90.7, MCH 28.3, MCHC 31.2 L, RDW Std Deviation 42.1, RDW Coeff of Ariel 12.7, Plt Count 397, MPV 8.9, Immature Gran % (Auto) 0.400, Neut % (Auto) 60.9, Lymph % (Auto) 23.4, [place] % (Auto) 8.2, Eos % (Auto) 6.2 H, Baso % (Auto) 0.9, Absolute Neuts (auto) 4.5, Absolute Lymphs (auto) 1.73, Nucleated RBC % 0 Radiography Diagnostic Testing: Radiology Impression Lower Extremity CT 11/20/22 15:31 IMPRESSION: Soft tissue swelling around the lower extremity may suggest cellulitis. No drainable abscess. Electronically Signed: Reji Coulter MD at 16:11 EDT ,
[2022-11-21] MEDS: Senna/Docusate Sodium 1 Tablet 2 TABLET PO ×2 (09:24→21:29)
[2022-11-21] MEDS: Enoxaparin 40 MG/0.4 ML Syringe SC (09:26)
[2022-11-21 10:11] LABS: Hemoglobin A1c 5.7 % (3.8-5.6)
[2022-11-21] MEDS: Acetaminophen 325 MG Tablet 650 MG PO ×2 (11:36→21:27)
[2022-11-21] MEDS: Vancomycin IV 1,000 MG/200 ML BAG 200 MG IV ×2 (11:39→21:13)
[2022-11-21 12:12] LABS: Bedside Glucose 125 mg/dL (74-106)
--- NOTE | 2022-11-21 12:17 | PN.HOSP_ITS ---
Reason for Visit Reason for Visit: Diagnoses Sepsis, unspecified organism (11/20/22) Subjective Subjective Patient reclined in bed, wakes easily. Pleasant and cooperative, on room air, without signs of distress. Denies problems over night, states that right leg pain is tolerable at rest but increases quite a bit with walking. Reports some anxiety about treatment of leg wound as her brother has had problems similar to this in the past due to his diabetes. Objective Data Objective Data Vital Signs: Vital Signs Temp Pulse Resp BP Pulse Ox O2 Del Method 97.9 F 72 16 149/93 H 97 Room Air 11/21/22 11:53 11/21/22 11:53 11/21/22 11:53 11/21/22 11:53 11/21/22 11:53 11/21/22 11:53 Oxygen Delivery Method Room Air Weight: 101.5 kg Body Mass Index (BMI) 38.2 Intake & Output: Intake and Output for Last 24 Hours 11/19/22 11/20/22 11/21/22 23:59 23:59 23:59 Intake Total 3634.35 / 3984.35 1725 / 1725 Output Total 2650 / 2650 Balance 3634.35 / 3409.35 -925 / -925 Lab / Micro Data Result Diagrams: 11/21/22 06:27 11/21/22 06:27 Labs: Laboratory Results - last 24 hr 11/20/22 13:25: WBC 9.4, RBC 4.52, Hgb 12.6, Hct 39.4, MCV 87.2, MCH 27.9, MCHC 32.0, RDW Std Deviation 40.2, RDW Coeff of Ariel 12.6, Plt Count 477 H, MPV 9.1, Immature Gran % (Auto) 0.400, Neut % (Auto) 74.1 H, Lymph % (Auto) 14.1 L, [place] % (Auto) 7.4, Eos % (Auto) 3.3, Baso % (Auto) 0.7, Absolute Neuts (auto) 7.0, Absolute Lymphs (auto) 1.33, Nucleated RBC % 0 11/20/22 13:25: PT 13.7, INR 1.0, APTT 26.1 11/20/22 13:25: Sodium 140, Potassium 3.8, Chloride 108 H, Carbon Dioxide 25.0, Anion Gap 7, BUN 11, Creatinine 0.85, Estim Creat Clear Calc 64.58, Est GFR (MDRD) Af Amer 89, Est GFR (MDRD) Non-Af 74, BUN/Creatinine Ratio 12.9, Glucose 157 H, Calcium 9.1, Total Bilirubin 0.60, AST 17, ALT 21, Alkaline Phosphatase 108, Total Protein 7.3, Albumin 2.9 L, Globulin 4.4 H, Albumin/Globulin Ratio 0.7 L 11/20/22 13:25: Lactic Acid 2.3 H* 11/20/22 13:25: Phosphorus 2.8, Magnesium 2.2, Total Creatine Kinase 59 11/20/22 18:35: Lactic Acid 2.1 H* 11/21/22 06:27: Sodium 141, Potassium 4.2, Chloride 113 H, Carbon Dioxide 26.0, Anion Gap 2 L, BUN 7, Creatinine 0.69, Estim Creat Clear Calc 79.55, Est GFR (MDRD) Af Amer 113, Est GFR (MDRD) Non-Af 94, BUN/Creatinine Ratio 10.1, Glucose 116 H, Calcium 8.3 L 11/21/22 06:27: WBC 7.4, RBC 4.10 L, Hgb 11.6 L, Hct 37.2, MCV 90.7, MCH 28.3, MCHC 31.2 L, RDW Std Deviation 42.1, RDW Coeff of Ariel 12.7, Plt Count 397, MPV 8.9, Immature Gran % (Auto) 0.400, Neut % (Auto) 60.9, Lymph % (Auto) 23.4, [place] % (Auto) 8.2, Eos % (Auto) 6.2 H, Baso % (Auto) 0.9, Absolute Neuts (auto) 4.5, Absolute Lymphs (auto) 1.73, Nucleated RBC % 0 11/21/22 06:27: Hemoglobin A1c 5.7 H 11/21/22 11:28: POC Glucose 125 H Micro: Microbiology 11/20/22 13:30 Wound - Leg, Right Wound Culture - Preliminary Staphylococcus species Gram positive organism Radiography Diagnostic Testing: Radiology Impression Lower Extremity CT 11/20/22 15:31 IMPRESSION: Soft tissue swelling around the lower extremity may suggest cellulitis. No drainable abscess. Electronically Signed: Reji Coulter MD at 16:11 EDT , Physical Exam Const Constitutional Narrative: Alert, oriented x3, no apparent distress, morbidly obese. HEENT head/scalp atraumatic and moist oral mucous membranes Head and Scalp: normocephalic Eyes PERRL and EOMs intact bilaterally Neck supple and no JVD Chest inspection of chest normal Resp normal respiratory effort, no retractions, no use of accessory muscles and clear to auscultation bilaterally Cardio regular rate, regular rhythm, S1 normal heart sound, S2 normal heart sound, no murmurs, no rub and no gallops GI normal to inspection, nondistended, normoactive bowel sounds, soft to palpation and non-tender; Negative for hepatosplenomegaly no CVA tenderness Back/Spine normal ROM Extremity Extremity Narrative: Right lower leg edematous and erythemic compared to left, edema is nonpitting, erythema outlined with skin marker to measure borders. Center of erythema is macerated,open wound draining purulent and serous fluid without malodor. Open area painful to touch, pain 8-9/10 to right lower extremity w/ambulation. Patient maintains full ROM. Neuro CN's II-XII intact bilaterally, moves all extremities, no focal motor deficits and no sensory deficits noted Motor Exam: strength 5/5 throughout Psych Mood & Affect: anxious Assessment & Plan Assessment/Plan (1) Cellulitis: (2) Lactic acidosis: PLAN: Plan 1. Cellulitis - erythemic and edematous areas marked to monitor expansion/recession - Infectious disease consulted, continue Vancomycin, added Unasyn, D/C Zosyn - wound care consulted for recommendations - wound cultured, pending results - bilateral venous ultrasound negative for DVTs, with limiting visualization of right mid and distal calf vessels d/t open wound 2. Lactic acidosis - lactic acid present on admission, SBPs trending 130-150mmHg, no tachycardia, no febrile events, pt remains on room air; sepsis criteria not met DVT: Lovenox
--- NOTE | 2022-11-21 12:23 | CON.PCM.ID_ITS ---
Assessment & Plan Assessment/Plan (1) Lactic acidosis: (2) Cellulitis: PLAN: RLE cellulitis with infected wound - recommend study to eval arterial blood flow. Wound cx with heavy GPC/staph seen. CT did not show gas/abscess/fasciitis. Wound care consulted. Will cover with vanc/unasyn for now. Will follow, thank you HPI Consult Data Date of Consult: 11/21/22 HPI Narrative Reason for Consultation: RLE infected wound HPI Narrative: CHAD GONZALEZ, is a 57 F who presented 11/20 to ED with 2-3 weeks progressive R medial lower leg itching, redness, wound formation, and drainage. No fever or chills, no recent abx. No other wounds. Pain was moderate, worse with walking. Came to ED, given vanc/unasyn, admitted on vanc/zosyn. Pain improved with pain meds. Full ROS performed and neg except as noted above. PFSH Medical History no medical history Home Medications NK 08/24/19 [History Last Taken Unknown] Allergy/AdvReac Type Severity Reaction Status Date / Time No Known Allergies Allergy Verified 08/24/19 17:19 Surgical History no surgical history Social History Smoking Status: Never smoker Physical Exam Const alert, oriented x3 and no apparent distress General Appearance: cooperative HEENT normocephalic and head/scalp atraumatic Eyes PERRL and EOMs intact bilaterally Neck supple and No nodes Resp normal air movement and clear to auscultation bilaterally Cardio regular rate and regular rhythm GI soft to palpation, non-tender and non-distended Extremity General Extremity: edema Skin Skin Narrative: R medial ware with diffuse ulceration, redness, mild/moderate tenderness Neuro CN's II-XII intact bilaterally Lab / Micro Data Attestation: I reviewed the patient's lab results. Result Diagrams: 11/21/22 06:27 11/21/22 06:27 Labs: Laboratory Results - last 24 hr 11/20/22 13:25: WBC 9.4, RBC 4.52, Hgb 12.6, Hct 39.4, MCV 87.2, MCH 27.9, MCHC 32.0, RDW Std Deviation 40.2, RDW Coeff of Ariel 12.6, Plt Count 477 H, MPV 9.1, Immature Gran % (Auto) 0.400, Neut % (Auto) 74.1 H, Lymph % (Auto) 14.1 L, [place] % (Auto) 7.4, Eos % (Auto) 3.3, Baso % (Auto) 0.7, Absolute Neuts (auto) 7.0, Absolute Lymphs (auto) 1.33, Nucleated RBC % 0 11/20/22 13:25: PT 13.7, INR 1.0, APTT 26.1 11/20/22 13:25: Sodium 140, Potassium 3.8, Chloride 108 H, Carbon Dioxide 25.0, Anion Gap 7, BUN 11, Creatinine 0.85, Estim Creat Clear Calc 64.58, Est GFR (MDRD) Af Amer 89, Est GFR (MDRD) Non-Af 74, BUN/Creatinine Ratio 12.9, Glucose 157 H, Calcium 9.1, Total Bilirubin 0.60, AST 17, ALT 21, Alkaline Phosphatase 108, Total Protein 7.3, Albumin 2.9 L, Globulin 4.4 H, Albumin/Globulin Ratio 0.7 L 11/20/22 13:25: Lactic Acid 2.3 H* 11/20/22 13:25: Phosphorus 2.8, Magnesium 2.2, Total Creatine Kinase 59 11/20/22 18:35: Lactic Acid 2.1 H* 11/21/22 06:27: Sodium 141, Potassium 4.2, Chloride 113 H, Carbon Dioxide 26.0, Anion Gap 2 L, BUN 7, Creatinine 0.69, Estim Creat Clear Calc 79.55, Est GFR (MDRD) Af Amer 113, Est GFR (MDRD) Non-Af 94, BUN/Creatinine Ratio 10.1, Glucose 116 H, Calcium 8.3 L 11/21/22 06:27: WBC 7.4, RBC 4.10 L, Hgb 11.6 L, Hct 37.2, MCV 90.7, MCH 28.3, MCHC 31.2 L, RDW Std Deviation 42.1, RDW Coeff of Ariel 12.7, Plt Count 397, MPV 8.9, Immature Gran % (Auto) 0.400, Neut % (Auto) 60.9, Lymph % (Auto) 23.4, [place] % (Auto) 8.2, Eos % (Auto) 6.2 H, Baso % (Auto) 0.9, Absolute Neuts (auto) 4.5, Absolute Lymphs (auto) 1.73, Nucleated RBC % 0 11/21/22 06:27: Hemoglobin A1c 5.7 H 11/21/22 11:28: POC Glucose 125 H Micro: Microbiology 11/20/22 13:30 Wound - Leg, Right Wound Culture - Preliminary Staphylococcus species Gram positive organism Radiology Impression Lower Extremity CT 11/20/22 15:31 IMPRESSION: Soft tissue swelling around the lower extremity may suggest cellulitis. No drainable abscess. Electronically Signed: Reji Coulter MD at 16:11 EDT , Venous Doppler Study 11/20/22 17:13 Interpretation Summary No evidence for acute deep venous thrombosis bilateral lower extremities with patent and compressible bilateral great saphenous veins. Technical limitation unable to visualize right mid and distal calf vessels due to open wounds. Ordering Physician: Sandeep Alanis Performed By: Geoffrey Brewster, RVT
--- NOTE | 2022-11-21 12:50 | CASEMGMT ---
RN?CM?CORPORATE CONTROLLER?CM?to room to meet with patient for initial transition planning/care coordination?assessment.?RN?CM?introduced self and role at [facility].? Pt voices understanding and consents to?assessment?at this time.? Pt sitting up in bed in no distress at this time.? Pt is A/O at this time and answers all questions appropriately.?? Care providers, pharmacy, and demographics verified/updated at this time. PCP: No PCP . Specialists: None Preferred Pharmacy: [facility]. Insurance: Self-pay Prescription Benefit:?none. Pt may benefit from [facility] Rx assist program at d/c Living Will/HPOA:?Pt does not currently have LW/HCPOA and declines wanting to complete at this time. LNOK: Brother, Cornelio. Nephew, Michael. Friend, Margo Living Arrangements: Lives @ [facility]. Pt states there are 20 steps to get to her room but there is a chair lift available, if needed. Pt states she is Independent. Transportation:?Pt states is able to drive, but does not have a vehicle. She states she either walks or a friend or family will provide transportation, if available. DME: ? Denies using any DME and denies needs.? HHC/SNF: No hx of either. Pt wishes to return to [facility] and states has no concerns with going home at time of discharge.?DIONE, Jazmin, working w/pt and states will provide resources. ?CM?to follow for any further discharge planning/needs.? Pt voices no further concerns/needs at this time.? Advised pt to ask for?CM?if any further questions/concerns/needs arise.? Voices understanding. PLAN:??Return to [facility] w/discharge plans in place. [facility] Rx assist program to cover cost of medications Anny KEITHN?RN?CM
--- NOTE | 2022-11-21 13:20 | CASEMGMT ---
Social Work Resources given to pt for self pay status, see SDMS assessment for details. SW also gave pt information on LW/POA. ERIN Giordano
--- NOTE | 2022-11-21 14:46 | CHAPLAIN ---
Type of Pastoral Visit _x__ Initial Visit ___ Follow-up Visit ___ On-call Visit ___ General Patient Visit ___ Spiritual Assessment ___ Family Conference ___ Bereavement ___ Rapid Response ___ Code Blue ___ Other (describe below) Pastoral Care Referral From _x__ Patient ___ Family ___ Nurse ___ Physician ___ Chief Operator Hydroformer ___ Solder Cream Maker ___ Other (describe below) Sacrament/Intervention _x__ Active listening ___ Anointing ___ Mormon ___ Bereavement ___ Communion ___ Michelle exploration ___ ___ Life review _x__ Prayer ___ Reconciliation ___ Sacrament of Sick _x__ Supportive presence ___ Wedding ___ Other (describe below) Pastoral Comments patient reviews her health need and then admits to not having a home, staying at [facility] temporarily; pt has a brother that should be checking on her today but otherwise has limited family support; pt welcomes prayer and presence
[2022-11-21 16:30] LABS: Probe Check PASS; Staph aureus DNA By PCR POSITIVE (Negative)
[2022-11-21 16:32] LABS: M R Staph aureus DNA By PCR POSITIVE (Negative)
--- NOTE | 2022-11-21 18:27 | PCM.PN.HOSP ---
Subjective Subjective Doing well, no issues overnight. Pain is improved and redness is no longer spreading Objective Data Objective Data Vital Signs: Vital Signs Temp Pulse Resp BP Pulse Ox O2 Del Method 97.7 F L 74 16 143/96 H 95 Room Air 11/21/22 15:30 11/21/22 16:46 11/21/22 15:30 11/21/22 15:30 11/21/22 15:30 11/21/22 15:30 Oxygen Delivery Method Room Air Weight: 223 lb 12.307 oz Body Mass Index (BMI) 38.2 Intake & Output: Intake and Output for Last 24 Hours 11/20/22 11/21/22 11/22/22 03:59 03:59 03:59 Intake Total 4034.35 / 4034.35 2437 / 2437 Output Total 575 / 575 2925 / 2925 Balance 3459.35 / 3459.35 -488 / -488 Lab / Micro Data Result Diagrams: 11/21/22 06:27 11/21/22 06:27 Labs: Laboratory Results - last 24 hr 11/20/22 18:35: Lactic Acid 2.1 H* 11/21/22 06:27: Sodium 141, Potassium 4.2, Chloride 113 H, Carbon Dioxide 26.0, Anion Gap 2 L, BUN 7, Creatinine 0.69, Estim Creat Clear Calc 79.55, Est GFR (MDRD) Af Amer 113, Est GFR (MDRD) Non-Af 94, BUN/Creatinine Ratio 10.1, Glucose 116 H, Calcium 8.3 L 11/21/22 06:27: WBC 7.4, RBC 4.10 L, Hgb 11.6 L, Hct 37.2, MCV 90.7, MCH 28.3, MCHC 31.2 L, RDW Std Deviation 42.1, RDW Coeff of Ariel 12.7, Plt Count 397, MPV 8.9, Immature Gran % (Auto) 0.400, Neut % (Auto) 60.9, Lymph % (Auto) 23.4, [place] % (Auto) 8.2, Eos % (Auto) 6.2 H, Baso % (Auto) 0.9, Absolute Neuts (auto) 4.5, Absolute Lymphs (auto) 1.73, Nucleated RBC % 0 11/21/22 06:27: Hemoglobin A1c 5.7 H 11/21/22 11:28: POC Glucose 125 H 11/21/22 11:40: S.aureus Protein A PCR POSITIVE H, MRSA (PCR) POSITIVE H Micro: Microbiology 11/20/22 13:30 Wound - Leg, Right Gram Stain - Final 11/20/22 13:30 Wound - Leg, Right Wound Culture - Preliminary Staphylococcus species Gram positive organism Radiography Diagnostic Testing: Radiology Impression Venous Doppler Study 11/20/22 17:13 Interpretation Summary No evidence for acute deep venous thrombosis bilateral lower extremities with patent and compressible bilateral great saphenous veins. Technical limitation unable to visualize right mid and distal calf vessels due to open wounds. Ordering Physician: Sandeep Alanis Performed By: Geoffrey Brewster RVT Physical Exam Narrative General: Alert, Oriented x3, Cooperative, No apparent distress HEENT: Atraumatic, PERRLA, EOMI, Normocephalic Oral: Moist Mucosa Neck: Supple, No JVD Lungs: Clear to auscultation, Normal air movement, No rhonchi, No wheeze, No rales Cardiovascular: Regular rate, Regular Rhythm, Normal S1, Normal S2, No murmurs Abdomen: Soft, Non Tender, Non-Distended, No Hepato-splenomegaly Extremities: No edema, Capillary Refill Less than 3 Seconds Skin: Area of erythema with skin breakdown and scar tissue, infection has been present for about a month Musculoskeletal: No Tenderness to Palpation of Joints or Extremities Neurological: Cranial nerves II-XII grossly intact, Motor Exam 5/5 strength throughout, Sensory exam intact to light touch and pain Psych/Mental Status: Normal Affect, Appropriate Assessment & Plan Assessment/Plan (1) Sepsis: PLAN: Plan 1. Right lower extremity cellulitis with varicose veins ? No signs of sepsis on admission ? CT scan did not demonstrate an abscess ? No DVT ? ABIs do demonstrate decreased circulation in her feet ? MRSA screen is positive ? Wound cultures growing staphylococcal species ? Continue with Vanco and Unasyn ? Appreciate and for his disease input 2. A1c is normal at 5.7 3. Morbid obesity: BMI 38.6 kg/m?. Weight loss counseling done. DVT: Lovenox Charges/Coding Visit Charges Inpatient E&M: 45526 Subs Hosp L2
[2022-11-21] MEDS: 0.9% Saline Lock 10 ML Syringe IV (21:22)
[2022-11-22] VITALS (7 sets, daily range): BP systolic 151–171; BP diastolic 85–101; PULSE 79–97; RESP 16–20; TEMP 36.5–36.8; O2SAT 96–99; BMI 38.7
[2022-11-22] MEDS: proCHLORPERazine 10 MG/2 ML Vial 5 MG IV ×2 (02:15→12:51)
[2022-11-22] MEDS: 0.9% Saline Lock 10 ML Syringe IV ×3 (02:17→20:56)
[2022-11-22 04:00] LABS: Absolute Lymphocyte Count 1.53 X10^3/uL (0.83-4.51); Absolute Neutrophil Count 5.2 X10^3/uL (2.0-7.7); Basophil# 0.06 X10^3/uL; Basophil% 0.8 % (0-1); Eosinophil# 0.45 X10^3/uL; Eosinophils% 5.7 % (0-5); Hematocrit 37.2 % (37-47); Hemoglobin 11.9 g/dL (12.0-15.0); Lymphocyte # 1.53 X10^3/ul (0.83-4.51); Lymphocyte % 19.5 % (19-41); Mean Corpuscular Hgb 28.3 pg (27.0-32.0); Mean Corpuscular Volume 88.4 fL (81-99); Monocyte# 0.61 X10^3/uL; Monocyte% 7.8 % (0-10); NRBC Flagged by Analyzer 0 % (0-5); Neutrophil # 5.16 X10^3/uL (2.7-7.7); Neutrophil % 65.7 % (47-70); Platelet Count 443 K/mm3 (150-450); RBC Distribution Width CV 12.5 % (11.6-14.6); RBC Distribution Width SD 40.1 fl (35.1-43.9); Red Blood Count 4.21 M/mm3 (4.2-5.4); White Blood Count 7.9 K/mm3 (4.4-11.0)
[2022-11-22 04:32] LABS: Anion Gap 6 (5-15); BUN 9 mg/dL (7-18); BUN/Creat Ratio 16.2 RATIO (10-20); Calcium,Total 8.6 mg/dL (8.5-10.1); Chloride 111 mmol/L (98-107); Creatinine, Serum 0.56 mg/dL (0.55-1.02); EST Glomerular Filtration Rate 121 mL/min (>60); Est Glom Filt Rate - Afr Amer 146 mL/min (>60); Estimated Creatinine Clearance 98.02 ml/min; Glucose 123 mg/dL (74-106); Potassium 3.6 mmol/L (3.5-5.1); Sodium Level 142 mmol/L (136-145)
[2022-11-22 04:33] LABS: Vancomycin, Trough Level 20.3 ug/mL (5.0-15.0)
[2022-11-22] MEDS: Vancomycin IV 1,000 MG/200 ML BAG 200 MG IV ×3 (05:21→20:58)
--- NOTE | 2022-11-22 06:31 | PHA.PHARE_ITS ---
Consult Pharmacy has been consulted to manage selected antiobiotic: Vancomycin Type of Consult: Follow-up Suspected Infection: Skin/Soft tissue Prior Doses of Antibiotics Received/Current Regimen: Medications Vancomycin HCl (Vancomycin) 1,000 mg in 200 mls @ 200 mls/hr IV Q8H JENIFFER Last Admin: 11/22/22 05:21 Dose: 200 mls/hr Labs: Sodium 142 mmol/L (136-145) 11/22/22 03:50 Potassium 3.6 mmol/L (3.5-5.1) 11/22/22 03:50 Chloride 111 mmol/L (98-107) H 11/22/22 03:50 Carbon Dioxide 25.0 mmol/L (21.0-32.0) 11/22/22 03:50 Anion Gap 6 (5-15) 11/22/22 03:50 BUN 9 mg/dL (7-18) 11/22/22 03:50 Creatinine 0.56 mg/dL (0.55-1.02) 11/22/22 03:50 Est GFR (MDRD) Af Amer 146 mL/min (>60) 11/22/22 03:50 Est GFR (MDRD) Non-Af 121 mL/min (>60) 11/22/22 03:50 BUN/Creatinine Ratio 16.2 RATIO (10-20) 11/22/22 03:50 Glucose 123 mg/dL (74-106) H 11/22/22 03:50 Vancomycin Trough 20.3 ug/mL (5.0-15.0) H 11/22/22 03:50 Microbiology: Microbiology 11/20/22 13:30 Wound - Leg, Right Gram Stain - Final 11/20/22 13:30 Wound - Leg, Right Wound Culture - Preliminary Staphylococcus species Gram positive organism Weight used for dosin kg Estimated Creatinine Clearance: 124 Goal Trough: 15-20 mcg/mL Pharmacy Plan for Drug Dosing: Vancomycin trough level of 20.2 was slightly above the target range of 15-20. However, the level was drawn just 6.3 hours post-dose, and renal function continues to improve. Therefore, will continue dosing at 1000mg q8h. Will re- draw a trough in two days. Pharmacy Service will continue to monitor and adjust dosing as required. Follow-Up Labs: Trough Vancomycin Labs to be done on [date and time ordered]: 11/24/22 @0330
[2022-11-22] MEDS: Senna/Docusate Sodium 1 Tablet 2 TABLET PO ×2 (07:30→20:59)
[2022-11-22] MEDS: Enoxaparin 40 MG/0.4 ML Syringe SC (07:30)
--- NOTE | 2022-11-22 09:48 | PCM.PN.HOSP ---
Subjective Subjective Feeling better today, feels that the redness is improving Objective Data Objective Data Vital Signs: Vital Signs Temp Pulse Resp BP Pulse Ox O2 Del Method 97.9 F 97 18 171/95 H 98 Room Air 11/22/22 07:32 11/22/22 08:10 11/22/22 07:32 11/22/22 07:32 11/22/22 08:15 11/22/22 08:15 Oxygen Delivery Method Room Air Weight: 227 lb 1.218 oz Body Mass Index (BMI) 38.7 Intake & Output: Intake and Output for Last 24 Hours 11/21/22 11/22/22 11/23/22 03:59 03:59 03:59 Intake Total 4034.35 / 4034.35 2749 / 2749 312 / 312 Output Total 575 / 575 3225 / 3225 750 / 750 Balance 3459.35 / 3459.35 -476 / -476 -438 / -438 Lab / Micro Data Result Diagrams: 11/22/22 03:50 11/22/22 03:50 Labs: Laboratory Results - last 24 hr 11/21/22 06:27: Hemoglobin A1c 5.7 H 11/21/22 11:28: POC Glucose 125 H 11/21/22 11:40: S.aureus Protein A PCR POSITIVE H, MRSA (PCR) POSITIVE H 11/22/22 03:50: Vancomycin Trough 20.3 H 11/22/22 03:50: WBC 7.9, RBC 4.21, Hgb 11.9 L, Hct 37.2, MCV 88.4, MCH 28.3, MCHC 32.0, RDW Std Deviation 40.1, RDW Coeff of Ariel 12.5, Plt Count 443, MPV 9.0, Immature Gran % (Auto) 0.500, Neut % (Auto) 65.7, Lymph % (Auto) 19.5, [place] % (Auto) 7.8, Eos % (Auto) 5.7 H, Baso % (Auto) 0.8, Absolute Neuts (auto) 5.2, Absolute Lymphs (auto) 1.53, Nucleated RBC % 0 11/22/22 03:50: Sodium 142, Potassium 3.6, Chloride 111 H, Carbon Dioxide 25.0, Anion Gap 6, BUN 9, Creatinine 0.56, Estim Creat Clear Calc 98.02, Est GFR (MDRD) Af Amer 146, Est GFR (MDRD) Non-Af 121, BUN/Creatinine Ratio 16.2, Glucose 123 H, Calcium 8.6 Micro: Microbiology 11/20/22 13:30 Wound - Leg, Right Gram Stain - Final 11/20/22 13:30 Wound - Leg, Right Wound Culture - Preliminary Staphylococcus aureus Radiography Diagnostic Testing: Radiology Impression Ankle Brachial Index 11/20/22 17:13 Interpretation Summary Normal right dorsalis pedis and posterior tibialis ankle-brachial indices at rest 1.23 and 1.22 respectively with normal triphasic Doppler waveforms. The right digital brachial index is abnormal at 0.63 suggesting distal small vessel disease Normal left lower extremity dorsalis pedis and posterior tibialis ankle-brachial indices at rest at 1.19 and 1.31 respectively with normal triphasic Doppler waveforms. The left lower extremity digital brachial index is borderline abnormal at 0.72 suggesting distal small vessel disease Ordering Physician: Sandeep Alanis Performed By: Geoffrey Brewster RVT Venous Doppler Study 11/20/22 17:13 Interpretation Summary No evidence for acute deep venous thrombosis bilateral lower extremities with patent and compressible bilateral great saphenous veins. Technical limitation unable to visualize right mid and distal calf vessels due to open wounds. Ordering Physician: Sandeep Alanis Performed By: Geoffrey Brewster RVT Physical Exam Narrative General: Alert, Oriented x3, Cooperative, No apparent distress HEENT: Atraumatic, PERRLA, EOMI, Normocephalic Oral: Moist Mucosa Neck: Supple, No JVD Lungs: Clear to auscultation, Normal air movement, No rhonchi, No wheeze, No rales Cardiovascular: Regular rate, Regular Rhythm, Normal S1, Normal S2, No murmurs Abdomen: Soft, Non Tender, Non-Distended, No Hepato-splenomegaly Extremities: No edema, Capillary Refill Less than 3 Seconds Skin: Area of erythema with skin breakdown and scar tissue, infection has been present for about a month Musculoskeletal: No Tenderness to Palpation of Joints or Extremities Neurological: Cranial nerves II-XII grossly intact, Motor Exam 5/5 strength throughout, Sensory exam intact to light touch and pain Psych/Mental Status: Normal Affect, Appropriate Assessment & Plan Assessment/Plan (1) Sepsis: PLAN: Plan 1. Right lower extremity cellulitis with varicose veins ? No signs of sepsis on admission ? CT scan did not demonstrate an abscess ? No DVT ? ABIs do demonstrate decreased circulation in her feet ? MRSA screen is positive, and wound culture with Staph aureus ? Continue with Vanco and Unasyn ? Appreciate ID input 2. A1c is normal at 5.7 3. Morbid obesity: BMI 38.6 kg/m?. Weight loss counseling done. DVT: Lovenox Charges/Coding Visit Charges Inpatient E&M: 93297 Subs Hosp L2
--- NOTE | 2022-11-22 11:03 | CASEMGMT ---
Social Work It is anticipated pt will be here through the weekend. SW will assist with hospital prescription assist if needed. ERIN Giordano
[2022-11-22] MEDS: Acetaminophen 325 MG Tablet 650 MG PO (20:59)
[2022-11-23 03:28] VITALS: BP 153/107; PULSE 82; RESP 18; TEMP 36.8; O2SAT 95
[2022-11-23] MEDS: Vancomycin IV 1,000 MG/200 ML BAG 200 MG IV (03:30)
[2022-11-23 05:20] VITALS: BMI 38.7
[2022-11-23 07:15] VITALS: O2SAT 96
--- NOTE | 2022-11-23 09:44 | DCINST_ITS ---
Discharge Instructions Diet Discharge Diet: No restrictions Activity Discharge Activity: Return to Normal Activity Dressing / Incision Call your doctor if you observe: Fever of 101 or Higher, Shortness of breath, Dizziness, Fainting spells, Swelling in the ankles, Chest pain and Increased palpitations (irregular heartbeat) Follow Up Care Test Results: Test results from this visit will be discussed in further detail at your follow- up appointment, if applicable. Discharge Plan Admission Admit Date/Time: 11/20/22 14:51 Attending Provider: Mustapha Suarez Primary Care Provider: Care Physician,No Primary Consulting Providers: Jose Emerson ; Sandeep Alanis Discharge Orders/Prescriptions Prescriptions: New cephalexin 500 mg capsule 500 mg PO TID 10 Days Qty: 30 0RF doxycycline monohydrate 100 mg capsule 100 mg PO BID 10 Days Qty: 20 0RF Referrals / Follow Up: Susannah Lizarraga [Non-Staff] - Within 1 Week Care Physician,No Primary [Primary Care Provider] - Disposition Disposition (needs filled in before D/C Order can be placed): Home, Self Care
[2022-11-23] MEDS: Enoxaparin 40 MG/0.4 ML Syringe SC (09:54)
[2022-11-23] MEDS: Senna/Docusate Sodium 1 Tablet 2 TABLET PO (09:54)
[2022-11-23 10:00] VITALS: BP 153/99; PULSE 91; RESP 16; TEMP 36.6; O2SAT 98
--- NOTE | 2022-11-23 10:23 | PCM.DC.SUM ---
Providers Date of Admission: 11/20/22 Primary Care Physician: Mariely Primary Care Phys Consultations 11/20/22 16:58 Consult: Infectious Disease Routine Consulting Provider: Jose Emerson Reason for Consult: Severe cellulitis, seems deep fascia infection EMERGENT Consult: No MD Notified: Yes Date Notified: 11/20/22 Time Notified: 16:41 Method of Notification: Text 11/20/22 19:23 Consult: Onc/Wound/obstetrics gynecology md Routine Comment: Reason for Consult:: RLE cellulitis with purulent drainage Reason For Visit: RLE CELLULITIS Diagnosis Discharge Diagnosis (1) Sepsis: Status: Acute Code(s): A41.9 - Sepsis, unspecified organism Medications at Discharge Home Medications cephalexin 500 mg capsule 500 mg PO TID 10 days #30 caps 11/23/22 doxycycline monohydrate 100 mg capsule 100 mg PO BID 10 days #20 caps 11/23/22 Hospital Course Operations None Procedures None Summary of Care Provided Minutes Spent on Discharge: 35 Hospital Course: Per HPI: CHAD GONZALEZ, is a 57 F who does not follow any PCP came to ED for right lower extremity cellulitis prominently worsening for about 2 to 3 weeks.? It started with itching about a month ago and right lower leg and then couple weeks ago she saw a redness pain, oozing purulent drainage.? She also had blisters.? Complain of pain and low-grade fever. Patient does not know about her past medical history as she does not follow any doctor.? She does not know whether she has diabetes mellitus but glucose was elevated in ED. Vitals in the ED shows low-grade fever, blood pressure in normal range no tachycardia or hypoxia.? Labs and imaging discussed in assessment and plan. She denies history of chronic atherosclerotic peripheral artery disease but seems she has varicose vein which she is unaware.? Denies coronary artery disease or stroke. Family history is negative for MS coronary artery disease or PAD. Hospital Course: 1. Right lower extremity cellulitis with varicose veins?57-year-old female who lives at [facility] presents to the hospital 1 month after she noticed redness on her right lower extremity. She did not seek medical care during this time. She does have a large area of tissue breakdown with scab formation that seeps in a few areas. She is feeling much better today. Wound culture demonstrated MRSA and I discussed the case with infectious disease who felt that she could be discharged on 10 days of Doxy as well as 10 days of Keflex. She did have Doppler ultrasound of her lower extremity which did not demonstrate a DVT. Arterial studies show distal arterial disease in her bilateral feet. I discussed with her the plan for discharge today she expressed understanding of the risk benefits of going home and would like to go home today. I do recommend she follow-up with the [facility] for monitoring her wound Physical Exam Narrative General: Alert, Oriented x3, Cooperative, No apparent distress HEENT: Atraumatic, PERRLA, EOMI, Normocephalic Oral: Moist Mucosa Neck: Supple, No JVD Lungs: Clear to auscultation, Normal air movement, No rhonchi, No wheeze, No rales Cardiovascular: Regular rate, Regular Rhythm, Normal S1, Normal S2, No murmurs Abdomen: Soft, Non Tender, Non-Distended, No Hepato-splenomegaly Extremities: No edema, Capillary Refill Less than 3 Seconds Skin: Area of erythema with skin breakdown and scar tissue, infection has been present for about a month Musculoskeletal: No Tenderness to Palpation of Joints or Extremities Neurological: Cranial nerves II-XII grossly intact, Motor Exam 5/5 strength throughout, Sensory exam intact to light touch and pain Psych/Mental Status: Normal Affect, Appropriate Weight / BMI Weight Weight: 226 lb 13.69 oz Body Mass Index (BMI) 38.7 ABG / Lab / Microbiology Data Result Diagrams: 11/22/22 03:50 11/22/22 03:50 Microbiology: Microbiology 11/20/22 13:30 Wound - Leg, Right Gram Stain - Final 11/20/22 13:30 Wound - Leg, Right Wound Culture - Final Meth. resistant Staph. aureus 11/20/22 13:30 Blood Culture (Wb) - Anticubital Right Blood Culture - Preliminary No growth in 48 hours. 11/20/22 13:25 Blood Culture (Wb) - Left Forearm Blood Culture - Preliminary No growth in 48 hours. D/C Instructions Discharge Diet: No restrictions Call your doctor if you observe: Fever of 101 or Higher, Shortness of breath, Dizziness, Fainting spells, Swelling in the ankles, Chest pain and Increased palpitations (irregular heartbeat) Meaningful Use Info Meaningful Use Diagnoses (Choose all that apply): None applicable Discharge Plan Admission Admit Date/Time: 11/20/22 14:51 Attending Provider: Mustapha Suarez Primary Care Provider: Care Physician,No Primary Consulting Providers: Jose Emerson ; Sandeep Alanis Discharge Orders/Prescriptions Prescriptions: New cephalexin 500 mg capsule 500 mg PO TID 10 Days Qty: 30 0RF doxycycline monohydrate 100 mg capsule 100 mg PO BID 10 Days Qty: 20 0RF Referrals / Follow Up: Susannah Lizarraga [Non-Staff] - Within 1 Week Care Physician,No Primary [Primary Care Provider] - Disposition Disposition (needs filled in before D/C Order can be placed): Home, Self Care Charges/Coding Visit Charges Inpatient E&M: 22604 Disch Hosp >30min
== END 2022-11-23 12:51 | disposition home or self-care (01) | DRG 383 ==
LOC: ED 15:08 → MS3 11-21 07:18
PROVIDERS: Nurse Practitioner; Admitting Provider Internal Medicine; Emergency Provider Emergency Medicine; Visit Provider Family Medicine
DX: L03.115 Cellulitis of right lower limb (principal); L97.219 Non-pressure chronic ulcer of right calf with unspecified severity; I83.012 Varicose veins of right lower extremity with ulcer of calf; E11.65 Type 2 diabetes mellitus with hyperglycemia; E66.01 Morbid (severe) obesity due to excess calories; E87.20 Acidosis, unspecified; I83.91 Asymptomatic varicose veins of right lower extremity; B95.62 Methicillin resistant Staphylococcus aureus infection as the cause of diseases classified elsewhere; Z51.5 Encounter for palliative care; Z66 Do not resuscitate; Z68.38 Body mass index [BMI] 38.0-38.9, adult
CPT/HCPCS: 97802; 36415; 73701; 80048; 80053; 80202; 82550; 82962; 83036; 83605; 83735; 84100; 85025; 85610; 85730; 87040; 87070; 87077; 87186; 87205; 87640; 93922; 93970; 94668; 96365; 96366; 96367; 96372; 96375; 96376; 97110; 97116; 97162; 97166; 97530; 97535; 99221; 99285; J7030; J7040; J7050; Q9967; A4216; G0378; J0295; J2405

== ENCOUNTER 2022-12-19 11:12 | Emergency (ER) | payer MEDICAID, SELFPAY ==
[2022-12-19 11:13] VITALS: BP 212/174; PULSE 190; RESP 22; TEMP 37.1; O2SAT 97; BMI 38.0
--- NOTE | 2022-12-19 11:51 | EDS_ITS ---
HPI <TRINI Lopez - Last Filed: 12/19/22 13:29> History of Present Illness Chief Complaint: Wound Narrative Narrative: Patient was admitted to [facility] about a month ago for severe cellulitis of the right lower extremity. After discharge she finished 1 week of Keflex and doxycycline (about 3 weeks ago). She has a red scar from the infection but today thought it looked darker prompting her to come in. She has a few small pustules that appeared. Denies fever, chills, drainage, or pain in the extremity. Denies history of diabetes. She had followed up at the [place] [facility] and was referred to the wound center and has an appointment on December 25. PFS <TRINI Lopez Last Filed: 12/19/22 13:29> [facility] Medical History no medical history Home Medications cephalexin 500 mg capsule 500 mg PO TID 10 days #30 caps 11/23/22 [Rx Last Taken Unknown] doxycycline monohydrate 100 mg capsule 100 mg PO BID 10 days #20 caps 11/23/22 [Rx Last Taken Unknown] cephalexin 500 mg capsule 500 mg PO Q6 7 days #28 CAPSULES 12/19/22 [Rx Last Taken Unknown] doxycycline hyclate 100 mg capsule 100 mg PO BID 7 days #14 caps 12/19/22 [Rx Last Taken Unknown] Allergy/AdvReac Type Severity Reaction Status Date / Time No Known Allergies Allergy Verified 12/19/22 11:13 Surgical History no surgical history Social History Smoking Status: Never smoker ROS <TRINI Lopez - Last Filed: 12/19/22 13:29> ROS ED ROS Narrative Constitutional: Negative for fever, chills, malaise. CVS: Negative for chest pain. Respiratory: Negative for shortness of breath. GI: Negative for nausea, vomiting. Neuro: Negative for motor/sensory dysfunction. Musc: Negative for joint pain, swelling, trauma. EXAM <TRINI Lopez Last Filed: 12/19/22 13:29> Physical Exam Narrative Exam Narrative: CONST: Patient sitting in no acute distress. EYES: Normal inspection. ENT: Normal inspection, moist mucous membranes. NECK: Normal inspection. RESP: No respiratory distress, CTAB. CVS: Regular rate and rhythm, no murmur, no gallop. SKIN: Color normal, no rash, warm, dry, intact. EXTREMITIES: Right medial calf has chronic red discoloration/scarring from prior infection. The area is warm to touch. There are few several small pustules along the outer calf that appear like folliculitis. No edema, full ROM of all joints without pain, 2+ DP pulses. NEURO: Oriented x4. PSYCH: Normal affect. Const Vital Signs: 12/19/22 11:13 12/19/22 13:24 Temperature 98.8 F Temperature Source Temporal Pulse Rate 190 H 76 Respiratory Rate 22 H 14 Blood Pressure 212/174 H 138/80 H Blood Pressure Mean 186 Pulse Ox 97 99 Oxygen Delivery Method Room Air <Dr. Rex Crook DO - Last Filed: 12/19/22 12:54> Physical Exam Const Vital Signs: 12/19/22 11:13 12/19/22 13:24 Temperature 98.8 F Temperature Source Temporal Pulse Rate 190 H 76 Respiratory Rate 22 H 14 Blood Pressure 212/174 H 138/80 H Blood Pressure Mean 186 Pulse Ox 97 99 Oxygen Delivery Method Room Air MDM <TRINI Lopez - Last Filed: 12/19/22 13:29> [facility] MDM Narrative Medical decision making narrative: Patient had severe right lower leg cellulitis a month ago. She appears well and nontoxic. Her heart rate was incorrectly double counted in triage because duri ng my exam it ranges from 70-80. Her right medial calf has a scarred area from prior infection. It is warm to touch but otherwise does not appear grossly infected. There is no lymphangitic streaking and she is neurovascularly intact. With the warmth she will be treated for cellulitis with Keflex and doxycycline. She has scheduled follow-up at the wound center in less than a week but was given return precautions. She was discharged in stable condition. Test considered: No indication for blood work as she is afebrile and does not appear septic Differential: Cellulitis, abscess, compartment syndrome, no risk factors for DVT <Dr. Rex Crook DO - Last Filed: 12/19/22 12:54> [facility] Treatment and Re-Evaluation :: I have personally performed a face to face assessment of the patient and have reviewed the GRACIELA Note. I performed a substantive portion of the visit including all aspects of the following. My pena findings include: History: Patient presents with redness and swelling to her lower extremities. Patient is concerned that she may be developing cellulitis again. Patient was recently admitted to the hospital for cellulitis of her right lower extremity. Patient completed Keflex and doxycycline. Patient states that she started noticing a couple pustules on her right leg and then noticed a pustule on her left leg. Patient denies any fevers or chills. Patient denies any discharge or drainage. Patient denies any paresthesias or weakness. Exam: Vital signs are stable. Patient is afebrile. Patient is in no acute distress. Skin is warm and dry. There is a small pustule noted over the lateral aspect of the right proximal lower leg. There is some mild surrounding erythema. There is some mild erythema over the lateral aspect of the left proximal lower leg. There is no vesicle or pustule noted. There is mild warmth. There is no discharge or drainage. There is no calf tenderness noted bilaterally. Pedal pulses are equal bilaterally. Sensation is intact to light touch in all digits. Capillary refills less than 2 seconds in all digits. Medical Decision Making: Patient was advised that this could be start of cellulitis developing again. Patient was given prescriptions for Keflex and doxycycline. Patient has an appointment with the wound care center next week. Patient was instructed to continue to keep this appointment. Patient was instructed to return if worse in any way. Patient understood and was agreeable with the plan. All questions were answered. Discharge Plan Triage Chief Complaint: Wound ED Midlevel Provider: Luisa Singh ED Provider: Rex Crook Dx/Rx/DC Orders Clinical Impression: Cellulitis of leg, right Instructions: Cellulitis Dc Prescriptions: New cephalexin 500 mg capsule 500 mg PO Q6 7 Days Qty: 28 0RF doxycycline hyclate 100 mg capsule 100 mg PO BID 7 Days Qty: 14 0RF No Action cephalexin 500 mg capsule 500 mg PO TID 10 Days Qty: 30 0RF doxycycline monohydrate 100 mg capsule 100 mg PO BID 10 Days Qty: 20 0RF Primary Care Provider: Susannah Jensen Referrals: Susannah Jensen [Primary Care Provider] - Activity Restrictions/Additional Instructions: Take both antibiotics and follow-up with the wound center. If symptoms worsen come back to the emergency room. Disposition Disposition: Home, Self Care Discharge Date/Time: 12/19/22 13:27
[2022-12-19 13:24] VITALS: BP 138/80; PULSE 76; RESP 14; O2SAT 99
[2022-12-19] MEDS: Cephalexin 250 MG Capsule 500 MG PO (13:25)
[2022-12-19] MEDS: Doxycycline 100 MG CAPSULE PO (13:25)
== END 2022-12-19 13:27 | disposition home or self-care (01) ==
PROVIDERS: Emergency Provider Emergency Medicine; Visit Provider Emergency Medicine
DX: L03.115 Cellulitis of right lower limb (principal)
CPT/HCPCS: 99283

== ENCOUNTER 2022-12-25 08:16 | Outpatient (RCR) | payer MEDICAID, SELFPAY ==
[2022-12-25 08:23] VITALS: BP 145/92; PULSE 91; RESP 16; TEMP 35.7; BMI 36.0
[2022-12-25 09:28] VITALS: BMI 36.0
--- NOTE | 2022-12-25 13:10 | PCM.WC.HP ---
History of Present Illness Date of Service: 12/25/22 Chief Complaint: Right lower extremity redness History of Wound: Ms Jackson is a 57-year-old who was referred to the wound center due to recent episode of cellulitis. She states that she developed a rash which was significantly itchy and following persistent scratching, subsequently developed significant pain, redness of her right lower extremity. Was seen at the emergency room and admitted and managed for cellulitis. Following antibiotic use, pain and significant redness resolved however still an area of concern. Does not utilize any form of compression. No chills, fever or otherwise feeling of unwell. No known history of diabetes. [facility] Medical History (Updated 12/25/22 @ 17:[address] Kellie Norwood MD) Bilateral lower extremity edema Dermatitis Home Medications cephalexin 500 mg capsule 500 mg PO TID 10 days #30 caps 11/23/22 [Rx Last Taken Unknown] doxycycline monohydrate 100 mg capsule 100 mg PO BID 10 days #20 caps 11/23/22 [Rx Last Taken Unknown] cephalexin 500 mg capsule 500 mg PO Q6 7 days #28 CAPSULES 12/19/22 [Rx Last Taken Unknown] doxycycline hyclate 100 mg capsule 100 mg PO BID 7 days #14 caps 12/19/22 [Rx Last Taken Unknown] Allergy/AdvReac Type Severity Reaction Status Date / Time No Known Allergies Allergy Verified 12/19/22 11:13 Social History Smoking Status: Never smoker ROS Constitutional Constitutional: Denies frequent falls, headache(s), increased appetite, lethargy, malaise, night sweats or weight loss Eyes Eyes: Denies bloody eye, blurry vision, decreased night vision, diplopia, discharge from eye(s), discongugate gaze, double vision or dry eyes ENT HEENT: Denies dysphagia, ear discharge, epistaxis, facial pain, foreign body in nose, halitosis, headache(s) or hearing loss Cardiovascular Cardiovascular: Denies chest pain at rest, chest pain with activity, claudication, clubbing, cold extremities, cyanosis, dyspnea at rest or dyspnea on exertion Respiratory/Chest Respiratory/Chest: Denies difficulty clearing secretions, dusky skin, dyspnea, dyspnea on exertion, excessive phlegm production, hemoptysis or hoarseness Gastrointestinal Gastrointestinal: Denies chewing difficulty, coffee ground emesis, constipation, cramping, diarrhea, dry heaves, dyspepsia or dysphagia Genitourinary Genitourinary: Denies abdominal discomfort, difficulty urinating, flank pain or urinary hesitancy Musculoskeletal Musculoskeletal: Denies extremity pain, joint stiffness, loss of height, muscle cramps, muscle weakness, numbness or radiating pain into limb Integumentary Integumentary: Denies erythema, hirsutism, jaundice, nail changes, non-healing lesions, pruritus or skin ulcer Neurologic Neurologic: Denies burning sensations, confusion, disequilibrium, focal weakness, frequent falls, headache(s) or lack of coordination Psychiatric Psychiatric: Denies behavioral changes, change in appetite, confusion, depression, hallucinations, homicidal ideation, hopelessness or irritability Endocrine Endocrinology: Denies cold intolerance, excessive sweating, flushing, heat intolerance, increase in ring/shoe/hat size, palpitations or polydipsia Hematologic/Lymphatic Hematologic/Lymphatic: Denies easy bleeding or lymphadenopathy Allergic/Immunologic Allergic/Immunologic: Denies itchy eyes, lip swelling, seasonal rhinorrhea, throat swelling, tongue swelling, hives, urticaria or eczemia Vital Signs Vital Signs Vital Signs: 12/25/22 08:23 Temperature 96.2 F L Temperature Source Temporal Pulse Rate 91 Respiratory Rate 16 Blood Pressure 145/92 H Blood Pressure Mean 109 Blood Pressure Source Monitor Blood Pressure Position Sitting Blood Pressure Location Left Arm Weight Weight: 210 lb Body Mass Index (BMI) 36.0 Physical Exam Const alert, oriented x3 and no apparent distress General Appearance: cooperative HEENT normocephalic, head/scalp atraumatic and hearing grossly normal bilaterally Eyes PERRL and EOMs intact bilaterally General Eye: normal appearance of both eyes Neck full ROM and supple General: normal visual inspection Resp normal respiratory effort, normal air movement and clear to auscultation bilaterally Cardio regular rate, regular rhythm, S1 normal heart sound and S2 normal heart sound GI soft to palpation, non-tender and non-distended Extremity General Extremity: edema Neuro CN's II-XII intact bilaterally Debridement Note Debridement Note Post-Debridement Measurements and Additional Note: Post-Debridement Measurements/Treatment KATHERINE - Nurse 1 - General Ulcer Assessment Start: 12/25/22 08:23 Freq: Status: Active Protocol: RADAMES Activity Type Activity Date Activity User E-sign Co-sign Detail Recorded Client Recorded Date Recorded By Document 12/25/22 08:23 JF [id number] 12/25/22 08:33 JF Document 12/25/22 09:28 DL [id number] 12/25/22 09:28 DL 12/25/22 12/25/22 08:23 09:28 - Today's Visit Information Type of service Initial Visit Arrival Mode Ambulatory Patient Identification Verified (Name & Yes ) Patient Requires Transmission-Based No Precautions Height and Weight Height 5 ft 4 in Weight 210 lb Weight in Pounds 210.0 lbs Weight Measurement Method Estimated by Patient Body Mass Index (BMI) 36.0 36.0 BMI Classification Obese Obese BSA - Bambi 2.00 Vital Signs Temperature (97.8 F-99.1 F) 96.2 F L Temperature Source Temporal Pulse Rate (60-100) 91 Pulse Location Monitor Respiratory Rate (12-18) 16 Respiratory rate source Observation Blood Pressure (90/60-120/80) 145/92 H Blood Pressure Mean 109 Source Monitor Position Sitting Blood Pressure Location Left Arm History Since Last Visit- (Skip if this is Patient's initial visit) Left Footwear Regular Shoe Right Footwear Regular Shoe Pain Scale: 0-10 Numeric Is Patient Pain Free? Yes Yes Communication Assessment Preferred language Italian Metal Moulder Required No Able to Read Yes Able to Write Yes Communication Tools None Caregiver Communication Skills No Impairment Impairment Right Hearing Abillity Hard of Hearing Left Hearing Abillity Hard of Hearing Visual Assistive Devices Glasses Teaching Assessment Preferences Verbal,Written, Audio/Visual, Demonstration Barriers to Learning None Readiness To Learn Excellent Willingness to Engage in Self Management High Activies Readiness to Engage in Self Management High Activities Anxiety Level Calm Cooperation Cooperative Perception Coherent Interest in Health Problem Asks Questions Education Importance Acknowledges Need Does Patient Smoke tobacco or other No substances Smoking Status Never smoker Is Patient Diabetic No Functional Assessment Recent Decline in Ability to Perform Denies Any Declines 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 Flame Cutting Machine Operator Helper to contact place of episcopalian No Teaching: Wound Center [facility] Orientation/ Contacting Physician -Person Taught Patient -Teaching Method Discussion, Demonstration -Response to teaching Return demonstration, Verbalize understanding - Nurse 1 - General Ulcer Measurement Start: 12/25/22 08:23 Freq: Status: Active Protocol: Activity Type Activity Date Activity User E-sign Co-sign Detail Recorded Client Recorded Date Recorded By Document 12/25/22 08:23 [id number] 12/25/22 08:33 JF 12/25/22 08:23 Wound Center Nurse 1 Lower Limb Edema Present Yes Right Calf (cm) 45 Right Ankle (cm) 26.4 Left Calf (cm) 44.8 Left Ankle (cm) 23.8 WC - Nurse 2 - General Ulcer CM Notes Start: 12/25/22 08:23 Freq: Status: Active Protocol: Activity Type Activity Date Activity User E-sign Co-sign Detail Recorded Client Recorded Date Recorded By Document 12/25/22 09:06 MW [id number] 12/25/22 09:10 MW 12/25/22 09:06 Pain Scale: 0-10 Numeric Is Patient Pain Free? Yes WC - Nurse 3 - General Ulcer D/C NN Start: 12/25/22 08:23 Freq: Status: Active Protocol: Activity Type Activity Date Activity User E-sign Co-sign Detail Recorded Client Recorded Date Recorded By Document 12/25/22 09:23 DL [id number] 12/25/22 09:25 DL 12/25/22 09:23 Wound Care Center Nurse 3 krista -Tubular Bandage Double Layer -Size of Tubigrip Used Size E -Size E ($) 2 Treatment Response Procedure Tolerated Well Pain Scale: 0-10 Numeric Is Patient Pain Free? Yes WC - Visit Discharge Discharge Condition Stable Ambulatory Status Ambulatory Transportation Private Auto Notes: No Wound, referral to Derm, discharged Charges/Coding Visit Charges Office Visits / Consults: [id number] OV L3 Est Assessment/Plan Assessment/Plan (1) Cellulitis of leg, right: CODE(S): L03.115 - Cellulitis of right lower limb (2) Dermatitis: CODE(S): L30.9 - Dermatitis, unspecified (3) Bilateral lower extremity edema: CODE(S): R60.0 - Localized edema PLAN: Plan Here following recent hospital stay for cellulitis. No significant erythema, differential warmth or pain on examination. She states that all of her prior symptoms have resolved though previously present. As above, rash preceded significant erythema pain and cellulitis. There appears to be residual dermatitis, recommend follow-up with dermatology. Also recommend adequate compression for lower extremity edema, patient voiced understanding. She has no open areas of ulceration so no further management indicated at the wound center. She was advised to follow-up with her PCP. Her questions were answered and she was advised to call with any further questions or concerns. This note was generated with [employer] dictation software. It may contain incorrect words, spelling, and punctuation that were not noted in checking the note before signing.
== END 2022-12-25 14:54 | disposition home or self-care (01) ==
LOC: WC 08:16
PROVIDERS: Visit Provider Internal Medicine
DX: L03.115 Cellulitis of right lower limb (principal); R60.0 Localized edema; L30.9 Dermatitis, unspecified
CPT/HCPCS: 99203; G0463

== ENCOUNTER 2023-03-03 09:20 | Emergency (ER) | payer MEDICAID, SELFPAY ==
[2023-03-03 09:21] VITALS: BP 152/59; PULSE 83; RESP 14; TEMP 36.6; O2SAT 98; BMI 38.4
--- NOTE | 2023-03-03 09:31 | EDS_ITS ---
HPI History of Present Illness Chief Complaint: Dizziness [facility] Medical History Bilateral lower extremity edema Dermatitis Home Medications cephalexin 500 mg capsule 500 mg PO TID 10 days #30 caps 11/23/22 [Rx Last Taken Unknown] doxycycline monohydrate 100 mg capsule 100 mg PO BID 10 days #20 caps 11/23/22 [Rx Last Taken Unknown] cephalexin 500 mg capsule 500 mg PO Q6 7 days #28 CAPSULES 12/19/22 [Rx Last Taken Unknown] doxycycline hyclate 100 mg capsule 100 mg PO BID 7 days #14 caps 12/19/22 [Rx Last Taken Unknown] meclizine 25 mg tablet 25 mg PO TID #21 tabs 03/03/23 [Rx Last Taken Unknown] ondansetron 4 mg disintegrating tablet 4 mg PO Q8H PRN PRN Nausea #10 tabs 03/03/23 [Rx Last Taken Unknown] Allergy/AdvReac Type Severity Reaction Status Date / Time No Known Allergies Allergy Verified 12/19/22 11:13 Social History Smoking Status: Never smoker EXAM Physical Exam Const Vital Signs: 03/03/23 09:21 03/03/23 10:00 03/03/23 11:41 Temperature 98 F Temperature Source Temporal Pulse Rate 83 72 Respiratory Rate 14 14 Respiratory Pattern Normal Blood Pressure 152/59 H 138/96 H Blood Pressure Mean 90 110 Pulse Ox 98 98 Oxygen Delivery Method Room Air Room Air 03/03/23 12:33 Temperature Temperature Source Pulse Rate 71 Respiratory Rate 14 Respiratory Pattern Blood Pressure 138/94 H Blood Pressure Mean Pulse Ox 97 Oxygen Delivery Method MDM MDM MDM Narrative Medical decision making narrative: HISTORY OF PRESENT ILLNESS: 57-year-old female here with intermittent dizzy spells since yesterday. She states this has been going on for the last 24 hours. Worsened by rising from a seated position not worsened by head movement. Notes acute onset of easily fatigable dizziness upon standing. Not associated with loss of vision, slurred speech, loss of movement or sensation in extremities. No history of strokes. Denies any bleeding diathesis or volume loss (vomiting or diarrhea) recently. Denies any head trauma. Denies any fevers. Denies any family history of connective tissue disorders or brain aneurysms. REVIEW OF SYSTEMS: Pertinent positives: Dizziness Pertinent negatives: Chest pain, shortness of breath, focal numbness weakness or dizziness. PHYSICAL EXAM: Nursing triage notes reviewed, Vital signs reviewed Constitutional: please see mdm HENT: MMM Eyes: Pupils equal round and reactive to light, Extraocular muscles intact Neck: No stridor, no JVD, full neck ROM Lungs: Clear to auscultation, No wheezing or rales. No increased work of br eathing, no conversational dyspnea, no accessory muscle use, no nasal flaring. No respiratory distress noted Heart: Regular rate and rhythm, No murmurs, No rubs and No gallops, 2+ distal pulses (radial, femoral, posterior tibial) in all extremities Abdomen: Soft, there is no tenderness, rigidity, rebound or guarding, no obvious peritoneal signs, no palpable pulsatile abdominal masses, no auscultated abdominal bruit : No CVAT Extremities: No edema Neuro: Alert and oriented x3, neuro exam at baseline, cranial nerves II through XII are intact. No pain with extraocular muscle movement. There is negative test of skew. 5 of 5 strength in upper and lower extremities in flexion extension. Intact sensation to light touch in upper and lower extremity dermatomes. No truncal or extremity ataxia. No dysdiadochokinesia. Normal gait. 2+ reflexes in upper and lower extremities. No meningeal signs. Negative Babinski. NIH of 0. Skin: No rash or lesions noted MEDICAL DECISION MAKING: Chief Complaint: Dizziness External records reviewed: CT scan of the brain from 2016 shows no acute findings Factors affecting care: none reported in the chart, per patient history of prediabetes ALL IMAGES (IF OBTAINED) HAVE BEEN PERSONALLY REVIEWED AND INTERPRETED BY MYSELF. EKG with normal sinus rhythm, left axis deviation, no intervals, no STEMI, similar morphology to prior EKG in 2020 Troponin is negative, no evidence of myocardial ischemia CBC without leukocytosis, severe anemia, no thrombocytopenia. BMP without evidence of significant electrolyte abnormalities, no anion gap, no acute kidney injury. I have personally reviewed the patient's chest x-ray. Chest x-ray is unremarkable for pulmonary edema, pneumothorax, pneumonia or focal cardiopulmonary abnormality. CT scan of the negative [facility] Narrative: The patient was hemodynamically stable, afebrile, nontoxic-appearing. Neurologic exam without focal deficits. I considered the following differential diagnosis: ICH, mass, dehydration, anemia, electrolyte abnormality arrhythmia, ACS, infectious etiology including pneumonia I obtained a broad lab and imaging work-up to further elucidate the etiology of the patient's complaints. Labs and images were unremarkable for any sign of life-limiting etiology. No clear precipitant of the patient's symptoms. I completed a structured, evidence-based clinical evaluation to screen for acute stroke and neurologic deficits in this patient. The patient has a normal detailed neurologic exam, which is highly sensitive for dangerous causes of dizziness, vertigo, or loss of balance. The evidence indicates that the patient is very low risk for an acute neurologic emergency and this is consistent with my clinical intuition. The risk of further workup or hospitalization is likely higher than the risk of the patient having a stroke or other dangerous neurologic condition. It is, therefore, in the patient?s best interest not to do additional emergent testing or to be hospitalized at this time. Shared Decision-Making I have discussed with the patient my clinical impression and the result of an evidence-based clinical evaluation to screen for stroke, as well as the risk of further testing and hospitalization. The evidence shows that the risk for stroke is less than 1%. Although the risk of stroke has not been completely eliminated, the risks of further testing or hospitalization likely exceed any potential benefit, and the patient agrees with not pursuing further emergent evaluation or hospitalization for stroke evaluation at this time. The patient and/or family, caregivers express understanding. The patient and/or family, caregivers agrees with the plan. Total critical care time today provided was at least 0 minutes. This excludes separately billable procedures. Critical care time (if documented) is secondary to the patient having high probability of clinically significant/life threatening deterioration in the patient's condition which required my urgent intervention. Impression: 1. acute peripheral vertigo Dispo:dc Lab Data Attestation: I reviewed the patient's lab results. Labs: Laboratory Results - last 24 hr 03/03/23 10:05 WBC 8.6 RBC 4.77 Hgb 13.4 Hct 41.2 MCV 86.4 MCH 28.1 MCHC 32.5 RDW Std Deviation 42.8 RDW Coeff of Ariel 13.6 Plt Count 368 MPV 8.9 Immature Gran % (Auto) 0.600 Neut % (Auto) 66.4 Lymph % (Auto) 20.8 [place] % (Auto) 7.6 Eos % (Auto) 4.1 Baso % (Auto) 0.5 Absolute Neuts (auto) 5.7 Absolute Lymphs (auto) 1.80 Nucleated RBC % 0 Sodium 139 Potassium 3.9 Chloride 107 Carbon Dioxide 26.0 Anion Gap 6 BUN 15 Creatinine 0.63 Estim Creat Clear Calc 87.13 Est GFR (MDRD) Af Amer 126 Est GFR (MDRD) Non-Af 104 BUN/Creatinine Ratio 23.8 H Glucose 111 H Calcium 8.8 Troponin I High Sens 4 Radiography Chest X-Ray - ED: Read by ED Physician Diagnostic Testing: Clinical Impression(s) from Imaging Studies Brain CT 03/03/23 09:46 IMPRESSION: Normal unenhanced CT scan of the brain. Electronically Signed: Toi Russell MD at 10:46 EDT , Chest X-Ray 03/03/23 10:40 IMPRESSION: Normal x-ray examination of the chest. Electronically Signed: Toi Russell MD at 10:50 EDT , Discharge Plan Triage Chief Complaint: Dizziness ED Provider: Carlos Mcfarland Dx/Rx/DC Orders Instructions: ED BPV Vertigo Prescriptions: New meclizine 25 mg tablet 25 mg PO TID Qty: 21 0RF ondansetron 4 mg tablet,disintegrating 4 mg PO Q8H PRN PRN (Reason: Nausea) Qty: 10 0RF No Action cephalexin 500 mg capsule 500 mg PO TID 10 Days Qty: 30 0RF doxycycline monohydrate 100 mg capsule 100 mg PO BID 10 Days Qty: 20 0RF cephalexin 500 mg capsule 500 mg PO Q6 7 Days Qty: 28 0RF doxycycline hyclate 100 mg capsule 100 mg PO BID 7 Days Qty: 14 0RF Primary Care Provider: [facility] Susannah Ramires Referrals: [facility] Susannah Ramires [Primary Care Provider] - Activity Restrictions/Additional Instructions: Thank you for trusting us with your care today! Please take Tylenol (2 pills, 650 mg), ibuprofen (2 pills, 400 mg) every 6 hours as needed for pain and fever control. Please take Zofran meclizine as needed for nausea and dizziness. Please return to the emergency department if your symptoms change or worsen. Please follow with your primary care physician for further outpatient evaluation and management. Disposition Disposition: Home, Self Care Discharge Date/Time: 03/03/23 12:39
--- NOTE | 2023-03-03 09:46 | CT_ITS ---
STUDY: CT BRAIN WITHOUT CONTRAST REASON FOR EXAM: Female, 57 years old. Dizziness r/o mass or bleed RADIATION DOSAGE (If Supplied By Facility): CTDIvol = ( 47.06 ) mGy, DLP = ( 855.03 ) mGycm TECHNIQUE: Transaxial CT imaging of the brain was performed without administration of intravenous contrast material. Individualized dose optimization techniques were used for this CT. COMPARISON: Comparison is made with prior study September 07, 2015. FINDINGS: Normal soft tissue structures. Normal calvarium. Normal size ventricles and extra-axial spaces for the patient''s age. Normal white matter tracts of the cerebral hemispheres. Normal basal ganglia and thalami. Normal brainstem. Normal cerebellum. There is no intracranial hemorrhage. There are no findings of an acute ischemic infarction. Normal visualized paranasal sinuses. CT/Brain/Head without Contrast IMPRESSION: Normal unenhanced CT scan of the brain. Electronically Signed: Toi Russell MD at 10:46 EDT ,
--- NOTE | 2023-03-03 09:47 | EKG12_ITS ---
Test Reason : Blood Pressure : / mmHG Vent. Rate : 069 BPM Atrial Rate : 069 BPM P-R Int : 150 ms QRS Dur : 080 ms QT Int : 418 ms P-R-T Axes : 039 -16 039 degrees QTc Int : 447 ms Normal sinus rhythm Normal ECG Confirmed by KIKI GONZALES, CHANEL ([id number]), videotape editor MADDIE GARCIA ([id number]) on 03/31/2023 1:33:28 PM Referred By: Confirmed By:CHANEL SWANSON MD
[2023-03-03] MEDS: 0.9% Normal Saline (1000mL) 1,000 ML 1000 ML IV (09:59)
[2023-03-03 10:22] LABS: Absolute Neutrophil Count 5.7 X10^3/uL (2.0-7.7); Basophil# 0.04 X10^3/uL; Basophil% 0.5 % (0-1); Eosinophil# 0.35 X10^3/uL; Eosinophils% 4.1 % (0-5); Hematocrit 41.2 % (37-47); Hemoglobin 13.4 g/dL (12.0-15.0); Lymphocyte % 20.8 % (19-41); Mean Corp Hgb Conc 32.5 g/dL (32-36); Mean Corpuscular Hgb 28.1 pg (27.0-32.0); Mean Corpuscular Volume 86.4 fL (81-99); Mean Platelet Vol. 8.9 fl (6.2-12.0); Monocyte# 0.66 X10^3/uL; Monocyte% 7.6 % (0-10); NRBC Flagged by Analyzer 0 % (0-5); Neutrophil # 5.74 X10^3/uL (2.7-7.7); Neutrophil % 66.4 % (47-70); Platelet Count 368 K/mm3 (150-450); RBC Distribution Width CV 13.6 % (11.6-14.6); RBC Distribution Width SD 42.8 fl (35.1-43.9); Red Blood Count 4.77 M/mm3 (4.2-5.4); White Blood Count 8.6 K/mm3 (4.4-11.0)
[2023-03-03 10:40] LABS: Anion Gap 6 (5-15); BUN 15 mg/dL (7-18); BUN/Creat Ratio 23.8 RATIO (10-20); Calcium,Total 8.8 mg/dL (8.5-10.1); Chloride 107 mmol/L (98-107); Creatinine, Serum 0.63 mg/dL (0.55-1.02); EST Glomerular Filtration Rate 104 mL/min (>60); Est Glom Filt Rate - Afr Amer 126 mL/min (>60); Estimated Creatinine Clearance 87.13 ml/min; Glucose 111 mg/dL (74-106); Potassium 3.9 mmol/L (3.5-5.1); Sodium Level 139 mmol/L (136-145); Troponin-I HS 4 pg/mL (3.0-54.0)
--- NOTE | 2023-03-03 10:40 | RAD_ITS ---
STUDY: X-RAY CHEST REASON FOR EXAM: Female, 57 years old. Dizziness TECHNIQUE: Single AP portable view of the chest. COMPARISON: Comparison is made with prior study August 20, 2019. FINDINGS: EKG electrodes are seen. The lungs are clear and expanded. There is no demonstrated pleural abnormality. Normal size heart. Normal mediastinum and mariana. Normal visualized pulmonary arteries. Normal visualized aortic arch and descending thoracic aorta. There are diffuse degenerative changes of the visualized thoracic spine. Normal visualized ribs, clavicles, and shoulders. There is no demonstrated abnormality of the visualized soft tissue structures of the upper abdomen. RAD/Chest 1 View (Portable) IMPRESSION: Normal x-ray examination of the chest. Electronically Signed: Toi Russell MD at 10:50 EDT ,
[2023-03-03 11:41] VITALS: BP 138/96; PULSE 72; RESP 14; O2SAT 98
[2023-03-03 12:33] VITALS: BP 138/94; PULSE 71; RESP 14; O2SAT 97
== END 2023-03-03 12:39 | disposition home or self-care (01) ==
PROVIDERS: Emergency Provider Emergency Medicine; Visit Provider Emergency Medicine
DX: R42 Dizziness and giddiness (principal)
CPT/HCPCS: 70450; 71045; 80048; 84484; 85025; 93005; 96360; 96361; 99284; J7030

== ENCOUNTER 2023-09-15 13:20 | Emergency (ER) | payer OTHER, MEDICAID, SELFPAY ==
[2023-09-15 13:20] VITALS: BP 145/98; PULSE 97; RESP 16; TEMP 35.7; O2SAT 97; BMI 40.0
--- NOTE | 2023-09-15 14:04 | CT_ITS ---
STUDY: CT BRAIN WITHOUT CONTRAST REASON FOR EXAM: Female, 57 years old. Head injury. RADIATION DOSAGE (If Supplied By Facility): CTDIvol = ( 47.06 ) mGy, DLP = ( 837.39 ) mGycm TECHNIQUE: Transaxial CT imaging of the brain was performed without administration of intravenous contrast material. Individualized dose optimization techniques were used for this CT. COMPARISON: Comparison is made with prior study of March 03, 2023. FINDINGS: Normal soft tissue structures. Normal calvarium. Normal size ventricles and extra-axial spaces for the patient''s age. Normal white matter tracts of the cerebral hemispheres. Normal basal ganglia and thalami. Normal brainstem. Normal cerebellum. There is no intracranial hemorrhage. There are no findings of an acute ischemic infarction. Mild degree of mucosal thickening along the posterior aspect of the left maxillary sinus. CT/Brain/Head without Contrast IMPRESSION: Normal unenhanced CT scan of the brain. Mild degree of mucosal thickening along the posterior aspect of the left maxillary sinus. Electronically Signed: Toi Russell MD at 14:33 EDT ,
--- NOTE | 2023-09-15 14:06 | EX.ED.DYSGE1 ---
HPI History of Present Illness Chief Complaint: Head Injury Informant: patient Narrative Narrative: 57-year-old female presenting to the emergency room following head injury. Patient states that earlier today around 1100 hrs. she was at work. 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 No loss of consciousness. She notes no nausea or vomiting. No bleeding. She states she has a frontal headache now and some discomfort on the right side of her neck. She denies any arm or leg symptoms. She occasionally takes an aspirin but denies any anticoagulants or other antiplatelets. No reported seizures. [facility] Medical History Bilateral lower extremity edema Dermatitis Home Medications cephalexin 500 mg capsule 500 mg PO TID 10 days #30 caps 11/23/22 [Rx Last Taken Unknown] doxycycline monohydrate 100 mg capsule 100 mg PO BID 10 days #20 caps 11/23/22 [Rx Last Taken Unknown] cephalexin 500 mg capsule 500 mg PO Q6 7 days #28 CAPSULES 12/19/22 [Rx Last Taken Unknown] doxycycline hyclate 100 mg capsule 100 mg PO BID 7 days #14 caps 12/19/22 [Rx Last Taken Unknown] meclizine 25 mg tablet 25 mg PO TID #21 tabs 03/03/23 [Rx Last Taken Unknown] ondansetron 4 mg disintegrating tablet 4 mg PO Q8H PRN PRN Nausea #10 tabs 03/03/23 [Rx Last Taken Unknown] Allergy/AdvReac Type Severity Reaction Status Date / Time No Known Allergies Allergy Verified 09/15/23 13:21 Social History Smoking Status: Never smoker ROS ROS ED Constitutional Constitutional ED: Denies chills, fever(s) or weight loss Eyes Eyes: Denies change in vision or diplopia ENT ENT ED: Denies ear pain, rhinorrhea or sore throat Cardiovascular Cardiovascular: Denies chest pain, orthopnea, palpitations or racing heartbeat Respiratory/Chest Respiratory/Chest: Denies cough, dyspnea or orthopnea Gastrointestinal Gastrointestinal: Denies abdominal pain, diarrhea, nausea or vomiting Genitourinary Genitourinary ED: Denies dysuria, hematuria or urinary frequency Musculoskeletal Musculoskeletal: Reports neck pain; Denies arthralgias, back pain or myalgias Integumentary Denies abscess or rash Neurologic Neurologic: Reports headache(s); Denies paresthesias or weakness Psychiatric Psychiatric: Denies anxiety, depression, suicidal ideation or suicidal thoughts Endocrine Endocrinology: Denies polydipsia, polyphagia or polyuria Allergic/Immunologic Allergic/Immunologic ED: Denies mouth swelling, tongue swelling or urticaria EXAM Physical Exam Const Vital Signs: 09/15/23 13:20 Temperature 96.3 F L Temperature Source Temporal Pulse Rate 97 Respiratory Rate 16 Blood Pressure 145/98 H Blood Pressure Mean 113 Pulse Ox 97 Oxygen Delivery Method Room Air Positive well nourished and well developed General Appearance ED: well developed HEENT Reports normocephalic, head/scalp atraumatic and moist mucous membranes Eyes PERRL and EOMs intact bilaterally Neck no lymphadenopathy, supple and no JVD Neck Narrative: Patient with mild tenderness to palpation along the right lateral musculature. No midline tenderness. Full range of motion though anticoagulant reported sore with rotation. Resp normal respiratory effort and clear to auscultation bilaterally Cardio regular rate, regular rhythm and no murmurs GI normal to inspection, nondistended, normoactive bowel sounds and non-tender Palpation: soft Back/Spine no CVA tenderness and normal ROM Extremity normal to inspection General Extremety ED: Negative for edema General Extremity: Negative for edema Neuro oriented x3 and CN's II-XII intact bilaterally Sensorium / Orientation: alert Motor Exam: strength 5/5 throughout Psych mental status grossly normal Mood & Affect: Negative for depressed or tearful Skin no rashes or lesions noted and no wounds MDM MDM MDM Narrative Medical decision making narrative: CT of brain was negative for ICH/fracture. Patient I do not believe needs neck imaging. The pain is lateral and has no change in range of motion. Would recommend Tylenol for headache. I would consider mild concussion if persistent symptoms. Would recommend follow-up with Worker's Compensation in 1 week. Patient is comfortable with the plan return if worsening or concerns History & Record Review Discussion w/independent historian: Patient Radiography Diagnostic Testing: Clinical Impression(s) from Imaging Studies Brain CT 09/15/23 14:04 IMPRESSION: Normal unenhanced CT scan of the brain. Mild degree of mucosal thickening along the posterior aspect of the left maxillary sinus. Electronically Signed: Toi Russell MD at 14:33 EDT , Discharge Plan Triage Chief Complaint: Head Injury ED Provider: Robi Sanchez Dx/Rx/DC Orders Clinical Impression: Acute cervical myofascial strain, Head injury Instructions: ED Head Injury (Adult) Prescriptions: No Action cephalexin 500 mg capsule 500 mg PO TID 10 Days Qty: 30 0RF doxycycline monohydrate 100 mg capsule 100 mg PO BID 10 Days Qty: 20 0RF cephalexin 500 mg capsule 500 mg PO Q6 7 Days Qty: 28 0RF doxycycline hyclate 100 mg capsule 100 mg PO BID 7 Days Qty: 14 0RF meclizine 25 mg tablet 25 mg PO TID Qty: 21 0RF ondansetron 4 mg tablet,disintegrating 4 mg PO Q8H PRN PRN (Reason: Nausea) Qty: 10 0RF [facility] - [facility] - Disposition Disposition: Home, Self Care
[2023-09-15 15:08] VITALS: BP 145/98; PULSE 97; RESP 16; TEMP 35.7; O2SAT 97
== END 2023-09-15 15:09 | disposition home or self-care (01) ==
LOC: ED 14:34
PROVIDERS: Emergency Provider Emergency Medicine; Visit Provider Emergency Medicine
DX: S09.90XA Unspecified injury of head, initial encounter (principal); S16.1XXA Strain of muscle, fascia and tendon at neck level, initial encounter; W22.8XXA Striking against or struck by other objects, initial encounter; Y93.89 Activity, other specified; Y99.0 Civilian activity done for income or pay; Y92.89 Other specified places as the place of occurrence of the external cause
CPT/HCPCS: 70450; 99282

== ENCOUNTER 2023-10-08 09:14 | Emergency (ER) | payer MEDICAID, SELFPAY ==
[2023-10-08 09:14] VITALS: BP 162/83; PULSE 94; RESP 14; TEMP 36.2; O2SAT 96; BMI 58.6
--- NOTE | 2023-10-08 10:13 | ED.VIS.LOWEX ---
HPI History of Present Illness HPI Narrative: 47-year-old female prediabetic redness right lower extremity and discomfort since yesterday. No fever or chills. No vomiting or diarrhea. Prior history of cellulitis in the same leg. No prior leg surgeries or prosthesis. No fall or trauma. No history of DVT or PE risk factors. Chief Complaint: Lower Extremity Injury Informant: patient Occured/Mechanism Mechanism/Context: No injury and No blunt trauma Onset/Context/Timing Onset: Today and Yesterday Context: Gradual Onset Timing: Continuous Quality of Pain: Dull and Aching Current Severity: Mild Maximum Severity: Mild Associated Symptoms Associated Symptoms: Negative for Parasthesia or Weakness Narrative Narrative: 57-year-old with redness in her right lower leg with discomfort since yesterday. No fall injury or trauma. No prior leg surgery. No fever or chills. Prior similar symptoms: Yes Recent Illness/Hospitalization: No PFSH PFSH Medical History Bilateral lower extremity edema Dermatitis Home Medications cephalexin 500 mg capsule 500 mg PO TID 10 days #30 caps 11/23/22 [Rx Last Taken Unknown] doxycycline monohydrate 100 mg capsule 100 mg PO BID 10 days #20 caps 11/23/22 [Rx Last Taken Unknown] cephalexin 500 mg capsule 500 mg PO Q6 7 days #28 CAPSULES 12/19/22 [Rx Last Taken Unknown] doxycycline hyclate 100 mg capsule 100 mg PO BID 7 days #14 caps 12/19/22 [Rx Last Taken Unknown] meclizine 25 mg tablet 25 mg PO TID #21 tabs 03/03/23 [Rx Last Taken Unknown] ondansetron 4 mg disintegrating tablet 4 mg PO Q8H PRN PRN Nausea #10 tabs 03/03/23 [Rx Last Taken Unknown] cephalexin 500 mg capsule 500 mg PO Q6 #40 CAPSULES 10/08/23 [Rx Last Taken Unknown] Allergy/AdvReac Type Severity Reaction Status Date / Time No Known Allergies Allergy Verified 10/08/23 09:14 Social History Smoking Status: Never smoker ROS ROS ED ROS Narrative Denies recent illness. Redness right lower leg. Review of Systems ROS Unobtainable: Denies due to encephalopathy Constitutional Constitutional ED: Denies chills or fever(s) Eyes Eyes: Denies blurry vision ENT ENT ED: Denies ear pain Cardiovascular Cardiovascular: Denies chest pain Respiratory/Chest Respiratory/Chest: Denies cough or dyspnea Gastrointestinal Gastrointestinal: Denies abdominal pain Genitourinary Genitourinary ED: Denies dysuria or hematuria Musculoskeletal Musculoskeletal: Denies arthralgias Integumentary Denies abscess Neurologic Neurologic: Denies headache(s) Psychiatric Psychiatric: Denies anxiety or depression Endocrine Endocrinology: Denies polydipsia or polyphagia Hematologic/Lymphatic Hematologic/Lymphatic: Denies easy bleeding Allergic/Immunologic Allergic/Immunologic ED: Denies mouth swelling or tongue swelling EXAM Physical Exam Narrative Exam Narrative: Well-appearing middle-aged female. Vital signs stable afebrile. HEENT exam unremarkable. Lungs clear. Heart regular rhythm. Abdomen soft nontender. Moving all 4 extremities. Normal strength. Normal sensation. Normal range of motion. She has redness on her right anterior ware consistent with cellulitis. Is warm to touch mildly uncomfortable to palpation. No crepitance. No subcu air. No necrosis. She has normal dorsi plantarflexion to her right foot. Normal DP pulse. Able to wiggle her toes. Normal strength and sensation. Full flexion extension to her right knee and right hip. There is no redness or swelling to either the right knee or hip. No deformity. No cords. No edema. Left lower both upper extremities are unremarkable back unremarkable. Neurologically she is awake and alert with no focal motor deficits. She does not look septic nor toxic. Const Vital Signs: 10/08/23 09:14 Temperature 97.2 F L Temperature Source Temporal Pulse Rate 94 Respiratory Rate 14 Blood Pressure 162/83 H Blood Pressure Mean 109 Pulse Ox 96 Oxygen Delivery Method Room Air Positive well nourished and well developed; Negative for cachectic or unkempt General Appearance ED: well developed; Negative for unkempt or cachectic Nutritional Appearance: Negative for cachectic HEENT Reports moist mucous membranes normocephalic and atraumatic; Negative for trauma or tenderness Eyes PERRL General Eye ED: Negative for other Neck full ROM and supple Thyroid: Negative for tender Lymph Lymphatic: Negative for other Chest Wall inspection of chest normal and palpation of chest normal Chest: Negative for other Resp normal respiratory effort and no retractions Effort and Inspection: Negative for pain with movement Auscultation: Negative for rales, rhonchi or wheezes Cardio regular rate, regular rhythm, S1 normal heart sound, S2 normal heart sound and no murmurs Rate: Negative for bradycardia or tachycardic Rhythm: Negative for abnormal rhythm Bruits: Negative for other GI non-tender, non-distended and no masses Auscultation: normoactive bowel sounds Palpation: soft; Negative for tender or guarding Bladder / Kidney Exam: No other Back/Spine no CVA tenderness General Back: Negative for CVA tenderness, swelling or other Extremity normal to inspection and full ROM Extremity Narrative: Except for redness right lower extremity on anterior ware consistent with cellulitis. No crepitance. No subcu air. No no chronic skin. Right foot neurovascular intact with normal range of motion. Touch sensation DP pulse. Normal flexion extension of the right hip and right knee. Neither is swollen, nor tender. No cellulitis to the knee or hip. No effusions or sign of septic joint. No inguinal lymphadenopathy. General Extremety ED: Negative for cyanosis or edema General Extremity: Negative for cyanosis or edema Neuro oriented x3, CN's II-XII intact bilaterally and moves all extremities Sensorium / Orientation: alert, oriented to person, oriented to place and oriented to time; Negative for orientation impaired, confused, lethargic or stuporous Motor Exam: strength 5/5 throughout Psych mental status grossly normal Appearance: Negative for unkempt Speech: No other Mood & Affect: Negative for anxious Skin Lesions: no lesions Rashes: No no rashes Trauma: Negative for abrasion or laceration MDM MDM MDM Narrative Medical decision making narrative: 57-year-old with cellulitis right lower leg. She was started on Keflex 1 pill 4 times a day for 10 days. Follow-up with the [facility] who is her primary care provider. She knows to return if this is getting worse. At this time she does not need admitted or testing. First dose of the antibiotic given in the emergency department. History & Record Review Discussion w/independent historian: Patient Additional record(s) reviewed:: Prior inpatient record, Prior outpatient record, Prior ED visit and Prior labs Discharge Plan Triage Chief Complaint: Lower Extremity Injury ED Provider: Dennys Coe Dx/Rx/DC Orders Clinical Impression: Cellulitis Instructions: ED Cellulitis Prescriptions: New cephalexin 500 mg capsule 500 mg PO Q6 Qty: 40 0RF No Action cephalexin 500 mg capsule 500 mg PO TID 10 Days Qty: 30 0RF doxycycline monohydrate 100 mg capsule 100 mg PO BID 10 Days Qty: 20 0RF cephalexin 500 mg capsule 500 mg PO Q6 7 Days Qty: 28 0RF doxycycline hyclate 100 mg capsule 100 mg PO BID 7 Days Qty: 14 0RF meclizine 25 mg tablet 25 mg PO TID Qty: 21 0RF ondansetron 4 mg tablet,disintegrating 4 mg PO Q8H PRN PRN (Reason: Nausea) Qty: 10 0RF Primary Care [facility] - 3-5 Days if not improving Activity Restrictions/Additional Instructions: If the infection in your lower leg is getting worse increasing redness she develop a fever or feel worse return. Tylenol and/or Motrin for pain. The antibiotic Keflex 1 pill 4 times a day till gone. Disposition Disposition: Home, Self Care
[2023-10-08] MEDS: Cephalexin 250 MG Capsule 500 MG PO (10:14)
[2023-10-08 10:24] VITALS: BP 150/80; PULSE 90; RESP 16; TEMP 36.6; O2SAT 99
== END 2023-10-08 10:25 | disposition home or self-care (01) ==
LOC: ED 10:19
PROVIDERS: Emergency Provider Emergency Medicine; Visit Provider Emergency Medicine
DX: L03.115 Cellulitis of right lower limb (principal)
CPT/HCPCS: 99282